=== PATIENT | male | born 1940 | race Caucasian/White ===

== ENCOUNTER 2018-11-07 05:24 | Inpatient (IN) | payer MEDICARE, OTHER ==
[~2018-11-07] VITALS: Ht 172.7 cm; Wt 105.0 kg
[2018-11-07] VITALS (7 sets, daily range): BP systolic 132; BP diastolic 61; PULSE 84–95; RESP 19; Ht 172.7 cm; Wt 105.0 kg
[~2018-11-07 05:24] MED LIST: ADV25050 INH; ALBU8.5H5 IH; ALEN10TA6 PO; BUPR75TA9 PO; ESCI20TA PO; HYDR10SY13 PO; [UNRECOGNIZED DRUG - OTHER]
[2018-11-07] MEDS ORDERED: SODIUM CHLORIDE 0.9% 1L BAG IV* STA (06:06)
[2018-11-07] MEDS ORDERED: IPRATROPIUM (NEB) 0.5 MG/2.5 ML AMP INH STA (06:06)
[2018-11-07] MEDS ORDERED: CEFEPIME 2GM/50 ML (PMX) 50 ML IVPB STA (06:06)
[2018-11-07] MEDS ORDERED: ALBUTEROL 0.5% (NEB) 2.5 MG/0.5 ML AMP INH STA (06:06)
--- NOTE | 2018-11-07 06:25 | ERD ---
ER Documentation Chief Complaint Chief Complaint bib ra from home for sob, ra started cpap, stage 4 ca, full code, brthng tx HPI This is an 78-year-old male who has a history of stage IV lung CA currently undergoing chemotherapy, unknown last dose. The patient presents to the emergency room shortness of breath. The patient usually sleeps with his CPAP and generally has shortness of breath. However symptoms were worse last night. Patient arrived via EMS on CPAP. He was placed in the room and remained on BiPAP. Upon my assessment the patient is a and that he feels much better. He does describe some mild chest discomfort but not pressure-like. No pleuritic pain. He has subjective fever last night with productive cough. Symptoms are described as moderate but improved. Patient is still full code. The family does not have a clear grasp on prognosis. Further conversations about goals of care, prognostic factors would be necessary during inpatient stay. ROS All systems reviewed and are negative except as per history of present illness. Medications Home Meds Reported Medications Albuterol Sulfate* (Albuterol Sulfate* HFA) 8.5 Gm Hfa.aer.ad, 2 PUFF IH Q6, EA 05/07/14 Salmeterol Xinaf/Fluticasone* (Advair*) 250-50 Diskus Inhaler, 1 INH INH BID, INH 05/07/14 [Flunazepam] No Conflict Check, 30 MG 05/07/14 Hydroxyzine Hcl (HYDROXYZINE HCL) 10 Mg/5 Ml Syrup, 25 MG PO 05/07/14 Bupropion Hcl* (Bupropion Hcl*) 75 Mg Tablet, 30 MG PO BID, TAB 05/07/14 Alendronate Sodium* (Alendronate Sodium*) 10 Mg Tablet, 10 MG PO DAILY, TAB 05/07/14 Escitalopram Oxalate* (Lexapro*) 20 Mg Tablet, 20 MG PO DAILY, TAB 05/07/14 Allergies Allergies: Coded Allergies: No Known Allergy (Unverified , 05/07/14) PMhx/Soc History of Surgery: Yes (R EYE CATARACT, LIANE. INGUINAL HERNIA, LUNG SX) Anesthesia Reaction: No Hx Neurological Disorder: No Hx Respiratory Disorders: Yes (COPD) Hx Cardiac Disorders: Yes (HYPERLIPIDEMIA) Hx Psychiatric Problems: No Hx Miscellaneous Medical Probl: Yes (headaches, lung ca stage 4) Hx Alcohol Use: No Hx Substance Use: No Hx Tobacco Use: No Smoking Status: Never smoker FmHx Family History: No diabetes Physical Exam Vitals Vital Signs Date Temp Pulse Resp B/P (MAP) Pulse Ox O2 O2 Flow FiO2 Time Delivery Rate 11/07/18 107 28 142/60 98 Mask 06:23 (87) 11/07/18 102 26 100 21 06:14 11/07/18 110 100 40 05:58 11/07/18 Nasal 05:44 Cannula 11/07/18 99.6 117 26 115/67 100 BIPAP 05:42 (83) 11/07/18 98.7 110 20 149/89 100 05:32 (109) Physical Exam General: Well developed, well nourished, no acute distress, talking in full sentences Head: Normocephalic, atraumatic. Eyes: Pupils equally reactive, EOM intact ENT: Moist mucous membranes Neck: Supple, no lymphadenopathy Respiratory: Coughing, slight increased work of breathing but no distress. Wheezing and rhonchi bilaterally. Cardiovascular: Irregular, no murmurs, rubs, or gallops Abdominal: Soft, non-tender, non-distended, no peritoneal signs : Deferred MSK: No edema, no unilateral swelling, 5/5 strength Neurologic: Alert and oriented, moving all extremities, normal speech, no focal weakness, no cerebellar signs Skin: No rash Psych: Normal mood Result Diagram: 11/07/18 0541 11/07/18 0541 Results 24 hrs Laboratory Tests Test 11/07/18 05:32 11/07/18 05:39 11/07/18 05:41 Blood Gas Specimen Source Blood arterial Arterial Blood Date Drawn 11/07/2018 5:40:53 AM Arterial Blood pH 7.436 (Temp corrected) Arterial Blood pCO2 40.3 mmhg (Temp correct) Arterial Blood pO2 459.4 mmHG (Temp corrected) Arterial Blood HCO3 26.5 mmol/L Arterial Blood Base Excess 2.2 mmol/L Arterial Blood 99.6 mmHG Oxygen Saturation Floyd Test ACCEPTAB Arterial Blood Gas Left Radial Puncture Site Arterial 0.3 % Blood Carboxyhemoglobin Arterial Blood Methemoglobin 0.4 % Blood Gas A-a O2 Differential 213.3 mmHg Oxyhemoglobin Percent 98.9 % Blood Gas Temperature 37.0 C Blood Gas Respiration Rate 16.0 Blood Gas Actual 25 Respiration Rate Blood Gas Modality MASK - BIPAP FiO2 100.0 % Blood Gas Pressure Support 10 Blood Gas IPAP/EPAP Ratio 15/5 Blood Gas Notified Whom MR Blood Gas Notified Time 11/07/2018 5:43:44 AM POC Venous Lactate 2.6 mmol/L White Blood Count 14.8 10^3/ul Red Blood Count 3.40 10^6/ul Hemoglobin 9.8 g/dl Hematocrit 32.4 % Mean Corpuscular Volume 95.3 fl Mean Corpuscular Hemoglobin 28.8 pg Mean Corpuscular 30.2 g/dl Hemoglobin Concent Red Cell Distribution Width 17.7 % Platelet Count 711 10^3/UL Mean Platelet Volume 9.5 fl Immature Granulocytes % 6.600 % Neutrophils % 30.4 % Lymphocytes % 39.8 % Monocytes % 22.6 % Eosinophils % 0.1 % Basophils % 0.5 % Nucleated Red Blood Cells % 4.6 /100WBC Immature Granulocytes # 0.970 10^3/ul Neutrophils # 4.5 10^3/ul Lymphocytes # 5.9 10^3/ul Monocytes # 3.3 10^3/ul Eosinophils # 0.0 10^3/ul Basophils # 0.1 10^3/ul Nucleated Red Blood Cells # 0.7 10^3/ul Prothrombin Time 13.6 Sec Prothrombin Time Ratio 1.1 INR International 1.03 Normalized Ratio Activated 30.5 Sec Partial Thromboplast Time Sodium Level 142 mmol/L Potassium Level 3.6 mmol/L Chloride Level 103 mmol/L Carbon Dioxide Level 29 mmol/L Anion Gap 10 Blood Urea Nitrogen 16 mg/dl Creatinine 1.24 mg/dl Est Glomerular Filtrat mL/min Rate mL/min Glucose Level 146 mg/dl Calcium Level 8.9 mg/dl Total Bilirubin 0.4 mg/dl Direct Bilirubin 0.00 mg/dl Indirect Bilirubin 0.4 mg/dl Aspartate Amino 27 IU/L Transf (AST/SGOT) Alanine 15 IU/L Aminotransferase (ALT/SGPT) Alkaline Phosphatase 81 IU/L Troponin I 0.013 ng/ml B-Type Natriuretic Peptide 1220 PG/ML Total Protein 6.8 g/dl Albumin 3.7 g/dl Globulin 3.10 g/dl Albumin/Globulin Ratio 1.19 Current Medications Medications Dose Sig/Jami Start Time Status Last (Trade) Ordered Route PRN Stop Time Admin Dose Reason Admin Sodium 2,050 ml BOLUS OVER 2 11/07/18 DC 11/07/18 Chloride HOURS STAT 06:06 11/07/18 06:12 (NS) IV* 06:08 Cefepime HCl 50 ml @ ONCE STAT 11/07/18 DC 11/07/18 100 mls/hr IVPB 06:06 11/07/18 06:17 06:35 Vancomycin 250 ml @ ONCE ONCE 11/07/18 11/07/18 HCl 125 mls/hr IVPB 06:30 11/07/18 06:48 08:29 Albuterol 5 mg ONCE STAT 11/07/18 DC 11/07/18 (Proventil INH 06:06 11/07/18 06:14 0.5% (Neb)) 06:08 Ipratropium 1 mg ONCE STAT 11/07/18 DC 11/07/18 [place] INH 06:06 11/07/18 06:14 (Atrovent 06:08 0.02% (Neb)) Procedures/MDM EKG, MONITORS, & DIAGNOSTIC IMAGING: EKG: I reviewed and interpreted a 12-lead EKG. Rhythm: A. fib rate of 106 ST Changes: No contiguous ST segment elevations T waves: No contiguous T wave inversions Impression: No evidence of acute cardiac ischemia Chest x-ray: I reviewed and interpreted a 1 view of the chest Mediastinum: No enlargement Cardiac silhouette: No cardiomegaly Airspace: Interstitial process bilaterally Bones: No evidence of fracture LAB INTERPRETATION: I reviewed the laboratory testing and it shows leukocytosis, lactic acid elevation MEDICAL DECISION MAKING: Patient presents with shortness of breath, subjective fevers, productive cough and a history of stage IV lung CA. Consider progression of disease, superimposed pneumonia. Less concern for CHF though the patient does have atrial fibrillation. No prior echocardiogram on electronic medical record. Patient arrived on CPAP and then placed on BiPAP by the overnight physician. Upon my assessment the patient states that he feels much better and would like to try off of positive pressure ventilation. ABG reassuring. Patient tolerated discontinuation without much difficulty. He is given a breathing treatment and resting comfortably on mild supplemental oxygenation. The patient and family have a very poor grasp of prognosis. The patient is full code. They need to be some goals of care conversations as well as prognostic conversations with patient and family during inpatient stay. ER COURSE: * Patient was treated with an ideal body weight fluid resuscitation given concern for possible mild pulmonary edema. The patient was given broad- spectrum antibiotics. Breathing treatment. * The patient is doing much better and resting comfortably. No indication for intubation, central line or pressors. Lactic acid possibly more consistent to underlying malignancy and work of breathing rather than underlying sepsis. * Patient can be admitted for further management. CONSULTATION: None DISPOSITION PLAN: Telemetry admission for management of shortness of breath, chest pain, pneumonia Accepting care team and consultations: I discussed the current laboratory data, diagnostic imaging and emergency care provided. Admitting team: Dr. David sepsis Documentation: Patient's infectious symptoms have not stabilized and the patient is at risk of rapid decompensation. The patient will be admitted for careful hydration, antibiotic therapy, and infectious source control. SEVERE SEPSIS CRITERIA: Infectious source: Community-acquired pneumonia End organ damage indicated by: Lactate > 2.0 mmol/L SEPSIS MANAGEMENT Time of recognition of sepsis: Upon MD assessment. Time of recognition of severe sepsis: Lactic acid resulted at 5:39 AM Time of recognition of septic shock: No septic shock at this time. 3 HOUR BUNDLE Blood cultures x 2 before broad-spectrum antibiotics: *The patient arrived before my shift started. Unfortunately blood cultures were not ordered at that time. Antibiotics were given prior to blood cultures before it was noted that blood cultures were not ordered on the patient during initial sepsis order set ordering. 30 ml/kg NS bolus pending completion. Railroad body weight used given possible volume overload component Initial lactate 2.6 Repeat lactate pending repeat SEPTIC SHOCK ASSESSMENT: No lactic acid > 4.0 No persistent hypotension (SBP < 90 or 40 mmHg drop, MAP < 65) despite 30 mL/kg IV fluid bolus VOLUME REASSESSMENT FOR SEPTIC SHOCK: The patient does not meet criteria for septic shock in the emergency department at this time PERSISTENT HYPOTENSION TREATMENT: Comfort care no Central line not Required Vasopressor started not required I considered further perfusion assessment with CVP measurement, SCVO2, bedside ultrasound volume assessment, passive leg raise, trial of further fluid bolus. And proceeded with 30 ml/kg fluid bolus of NSS, broad spectrum antibiotics, and admission. CRITICAL CARE Critical care time 35 minutes Emergent fluid management while maintaining close respiratory support. Provision of immediate and broad-spectrum antibiotic therapy. Simultaneous assessment for possible sources in order to direct targeted therapy. Consi deration for invasive and chemical support to prevent cardiopulmonary collapse. Critical care time is independent of procedures performed. Admitting team indication: Insurance directed Departure Diagnosis: Primary Impression: Metastatic primary lung cancer Laterality: unspecified laterality Qualified Codes: C34.90 - Malignant neoplasm of unspecified part of unspecified bronchus or lung Additional Impressions: Shortness of breath Atrial fibrillation Atrial fibrillation type: unspecified Qualified Codes: I48.91 - Uns pecified atrial fibrillation Healthcare-associated pneumonia Severe sepsis Condition: Stable RODERICK CIFUENTES MD Nov 07, 2018 06:25
[2018-11-07] MEDS ORDERED: VANCOMYCIN 1 GM (PMX) 250 ML IVPB ONE (06:30)
[2018-11-07] MEDS ORDERED: ACETAMINOPHEN 325 MG TAB PO PRN ×2 (07:00→07:30)
[2018-11-07] MEDS ORDERED: ONDANSETRON 4 MG INJ IV PRN ×2 (07:00→07:30)
[2018-11-07] MEDS ORDERED: SOD CHLORIDE 0.45% 1,000 ML IV SCH (07:03)
[2018-11-07] MEDS ORDERED: NACL 0.9% 3 ML SYG IV SCH (07:30)
[2018-11-07] MEDS ORDERED: morphine 2 MG INJ IV PRN (07:30)
[2018-11-07] MEDS ORDERED: MAGNESIUM HYDROXIDE 30ML CUP PO PRN (07:30)
[2018-11-07] MEDS ORDERED: VANCOMYCIN IV PER PHARMACY XX SCH (07:30)
[2018-11-07] MEDS ORDERED: LORAZEPAM 2 MG INJ IV PRN (07:30)
[2018-11-07] MEDS ORDERED: ALBUTEROL/IPRATROPIUM (NEB) 3 ML AMP HHN PRN (07:30)
[2018-11-07] MEDS ORDERED: DOCUSATE SODIUM 100 MG CAP PO PRN (07:30)
[2018-11-07] MEDS ORDERED: NITROGLYCERIN (SL) 0.4 MG TAB SL PRN (07:30)
[2018-11-07] MEDS ORDERED: hydrALAzine 20 MG INJ IV PRN (07:30)
[2018-11-07] MEDS: ESCITALOPRAM 10 MG TAB PO SCH (08:50)
[2018-11-07] MEDS: HYDROCODONE/APAP (5/325) TAB PO PRN (08:50)
[2018-11-07] MEDS: HEPARIN 5,000 UNIT/1 ML VIAL SC SCH ×2 (08:50→20:48)
[2018-11-07] MEDS: FLUTICASONE/VILANTEROL 100-25 INH SCH (09:00)
[2018-11-07] MEDS ORDERED: NON-FORMULARY/PATIENT OWN MED (Salmeterol Xinaf/Fluticasone* (Advair*) 1 INH) INH SCH (09:00)
--- NOTE | 2018-11-07 09:56 | HP ---
Date/Time of Note Date/Time of Note DATE: 11/07/18 TIME: 09:47 Assessment/Plan VTE Prophylaxis Pharmacological prophylaxis: heparin Lines/Catheters IV Catheter Type (from Nrs): Saline Lock Assessment/Plan Hospital Course SUBJECTIVE: In bed, on 3 L oxygen via nasal cannula. Having cough, shortness of breath. No fevers currently. OBJECTIVE: Vital signs-see below PHYSICAL EXAM: Constitutional: elderly obese male,not in acute distress. HEENT: Head atraumatic and normocephalic. Eyes: Extraocular muscles intact. Anicteric sclerae. Pupils equal bilaterally, reactive to light. NECK: Supple without lymph node. CHEST: Rhonchi bilaterally. No wheezing. HEART: S1, S2. Regular rate and rhythm. ABDOMEN: Protuberant abdomen. Soft/non tender with no rebound tenderness. Bowel sounds were present. EXTREMITIES:+2 Edema BLE. No cyanosis, clubbing NEUROLOGIC: Alert and oriented x3. No focal deficit. No sensory deficit. PSYCHOSOCIAL: No signs of depression. INTEGUMENTARY: No open wounds. 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 I have instructed patient's family to call oncologist to postpone his next chemo session which is day after tomorrow secondary to pneumonia -Outpatient oncology follow-up after discharge -Pain control LOI/home CPAP use -Nocturnal CPAP -Patient pulmonary follow-up Depression/anxiety syndrome -Resume home medications Chronic pain -PRN opiates Obesity with BMI 37 -Weight reduction advised DVT prophylaxis: Heparin PUD prophylaxis: PPI Rest of the management depend on clinical course. Approximately 60 m spent on this history and physical. Patient was seen in collaboration with Dr. Marinelli. Result Diagram: 11/07/1854011/07/18 0541 Results 24hrs Laboratory Tests Test 11/07/18 05:32 11/07/18 05:39 11/07/18 05:41 11/07/18 08:23 Blood Gas Specimen Blood arterial Source Arterial Blood 11/07/2018 5:40:53 Date Drawn AM Arterial Blood pH 7.436 (Temp corrected) Arterial Blood 40.3 pCO2 (Temp correct) Arterial Blood pO2 459.4 H (Temp corrected) Arterial Blood 26.5 H HCO3 Arterial Blood 2.2 Base Excess Arterial Blood 99.6 Oxygen Saturation Floyd Test ACCEPTAB Arterial Blood Gas Left Radial Puncture Site Arterial 0.3 Blood Carboxyhemog lobin Arterial Blood 0.4 Methemoglobin Blood Gas A-a O2 213.3 H Differential Oxyhemoglobin 98.9 Percent Blood Gas 37.0 Temperature Blood Gas 16.0 Respiration Rate Blood Gas Actual 25 Respiration Rate Blood Gas Modality MASK - BIPAP FiO2 100.0 Blood Gas Pressure 10 Support Blood Gas 15/5 IPAP/EPAP Ratio Blood Gas Notified MR Whom Blood Gas Notified 11/07/2018 5:43:44 Time AM POC Venous Lactate 2.6 *H White Blood Count 14.8 #H Red Blood Count 3.40 #L Hemoglobin 9.8 #L Hematocrit 32.4 #L Mean Corpuscular 95.3 Volume Mean Corpuscular 28.8 L Hemoglobin Mean Corpuscular 30.2 L Hemoglobin Concent Red Cell 17.7 H Distribution Width Platelet Count 711 H Mean Platelet 9.5 # Volume Immature 6.600 H Granulocytes % Neutrophils % 30.4 L Segmented 14 L Neutrophils % (Manual) Band Neutrophils % 15 H (Manual) Lymphocytes % 39.8 Lymphocytes % 31 (Manual) Reactive 10 H Lymphocytes % (Manual) Monocytes % 22.6 H Monocytes % 17 H (Manual) Eosinophils % 0.1 Eosinophils % 3 (Manual) Basophils % 0.5 Basophils % 2 (Manual) Metamyelocytes % 2 H (manual) Myelocytes % 4 H (Manual) Promyelocytes % 2 H (Manual) Nucleated Red 5 H Blood Cells % Immature 0.970 H Granulocytes # Neutrophils # 4.5 Neutrophils # 2.4 (Manual) Band Neutrophils # 2.2 H Lymphocytes 4.5 H (Manual) Lymphocytes # 5.9 H Reactive 1.4 H Lymphocytes # Monocytes # 3.3 H Monocytes # 2.5 H (Manual) Eosinophils # 0.0 Basophils # 0.1 Basophils # 0.2 H (Manual) Metamyelocytes # 0.2 H Myelocytes # 0.5 H Promyelocytes # 0.2 H Nucleated Red 0.7 H Blood Cells # Platelet Estimate INCREASED Polychromasia 3+ Poikilocytosis 1+ Anisocytosis 1+ Tear Drop Cells 1+ Ovalocytes 1+ Prothrombin Time 13.6 14.4 Prothrombin Time 1.1 1.1 Ratio INR International 1.03 1.11 Normalized Ratio Activated 30.[address] Time Sodium Level 142 Potassium Level 3.6 Chloride Level 103 Carbon Dioxide 29 Level Anion Gap 10 Blood Urea 16 Nitrogen Creatinine 1.24 Est Glomerular Filtrat Rate mL/min Glucose Level 146 Calcium Level 8.9 Total Bilirubin 0.4 Direct Bilirubin 0.00 Indirect Bilirubin 0.4 Aspartate Amino 27 Transf (AST/SGOT) Alanine 15 Aminotransferase ( ALT/SGPT) Alkaline 81 Phosphatase Troponin I 0.013 B-Type Natriuretic 1220 H Peptide Total Protein 6.8 Albumin 3.7 Globulin 3.10 Albumin/Globulin 1.19 Ratio Lactic Acid Level 3.5 *H Free Thyroxine 1.16 HPI/ROS Admit Date/Time Admit Date/Time Hx of Present Illness This is a 78-year-old [place] male with history of stage IV lung cancer diagnosed in 2013 who underwent left sided lung resection surgery followed by radiation, progression of cancer mets to spine currently receiving on chemotherapy with last session last week, LOI/home CPAP use, depression /anxiety syndrome, pain secondary to cancer, brought into the emergency room with worsening shortness of breath, cough, fevers since yesterday. Patient has been using his inhalers and CPAP machine which was not enough at this time. His next chemotherapy is supposed to be day after tomorrow. Patient denied nausea, vomiting, abdominal pain, loss of consciousness, dizziness, speech difficulties, vision changes, diarrhea, constipation, numbness, tingling or other constitutional symptoms. In the emergency room, patient was noted with a white count 14,800, hemoglobin 9.8, hematocrit 32.4, platelet 711, lactic acid 2.6 which went up to 3.5, and B12 20. Chest x-ray showed chronic interstitial prominence bilaterally along with atelectasis. Vital signs show temperature 99.6, pulse rate 117 and patient also required BiPAP in the emergency room. Tolerated EKG showed atrial fibrillation with heart rate ranging in 110. And was given Zosyn and vancomycin in the emergency room. ROS A 12 point review of system was assessed and is negative other than what is mentioned in the HPI. PMH/Family/Social Past Medical History See HPI Medications Current Medications Ondansetron HCl (Zofran Inj) 4 mg ER BRIDGE PRN IV NAUSEA/VOMITING; Start 11/07/18 at 07:00; Stop 11/08/18 at 06:59 Acetaminophen (Tylenol Tab) 650 mg ER BRIDGE PRN PO .MILD PAIN 1-3 OR TEMP; Start 11/07/18 at 07:00; Stop 11/08/18 at 06:59 IV Flush (NS 3 ml) 3 ml PER PROTOCOL IV ; Start 11/07/18 at 07:30 Ondansetron HCl (Zofran Inj) 4 mg Q6H PRN IV NAUSEA/VOMITING; Start 11/07/18 at 07:30 Acetaminophen (Tylenol Tab) 650 mg Q6H PRN PO .PAIN 1-3 OR TEMP; Start 11/07/18 at 07:30 Acetaminophen/ Hydrocodone Bitart ([place] (5/325)) 1 tab Q6H PRN PO .MOD PAIN 4- 6; Start 11/07/18 at 07:30 Morphine Sulfate (morphine) 2 mg Q4H PRN IV .SEVERE PAIN 7-10; Start 11/07/18 at 07:30 Docusate Sodium (Colace) 100 mg Q12H PRN PO .CONSTIPATION; Start 11/07/18 at 07:30 Magnesium Hydroxide (Milk Of Mag) 30 ml DAILY PRN PO .CONSTIPATION; Start 11/07/18 at 07:30 Pantoprazole (Protonix Tab) 40 mg DAILY@06 PO ; Start 11/08/18 at 06:00 Heparin Sodium (Porcine) (Heparin (5000 Units/1ml)) 5,000 unit Q12 SC ; Start 11/07/18 at 09:00 Sodium Chloride 1,000 ml @ 75 mls/hr [id number] IV ; Start 11/07/18 at 07:03 Lorazepam (Ativan) 0.5 mg Q6H PRN IV ANXIETY; Start 11/07/18 at 07:30 Albuterol/ Ipratropium (Duoneb) 3 ml Q4H RESP THERAPY PRN HHN SHORTNESS OF BREATH; Start 11/07/18 at 07:30 Piperacillin Sod/ Tazobactam Sod 100 ml @ 200 mls/hr Q6 IVPB ; Start 11/07/18 at 12:00 Vancomycin HCl (Vanco Iv Per Pharmacy) VANCOMYCIN PER PHARMACY NOTE XX ; Start 11/07/18 at 07:30 Hydralazine HCl (Apresoline) 10 mg Q6H PRN IV for sys bp > 180; Start 11/07/18 at 07:30 Nitroglycerin (Nitroglycerin (Sl Tab) 0.4 Mg) 1 tab Q5M PRN SL ANGINA; Start 11/07/18 at 07:30 Albuterol (Ventolin Hfa) 2 puff Q6 INH ; Start 11/07/18 at 12:00 Alendronate Sodium (Fosamax) 10 mg AC BREAKFAST PO ; Start 11/08/18 at 07:00 Escitalopram Oxalate (Lexapro) 20 mg DAILY PO ; Start 11/07/18 at 09:00 Vancomycin HCl 1.25 gm/Sodium Chloride 250 ml @ 83.333 mls/ hr Q24H IVPB ; Start 11/07/18 at 13:00 Fluticasone/ Vilanterol (Breo Ellipta 100-25 Mcg Inh) 1 inh DAILY INH ; Start 11/07/18 at 09:00 Coded Allergies: No Known Allergy (Unverified , 11/07/18) Past Surgical History See HPI Social History Former heavy smoker. Smoking Status: Never smoker Exam/Review of Systems Vital Signs Vitals Vital Signs Date Temp Pulse Resp B/P (MAP) Pulse Ox O2 O2 Flow FiO2 Time Delivery Rate 11/07/18 100 24 120/62 98 Nasal 4.0 08:18 (81) Cannula 11/07/18 21 06:14 11/07/18 99.6 05:42 Intake and Output 11/06/18 11/06/18 11/07/18 1515:00 23:00 07:00 IntakeIntake Total 50 ml BalanceBalance 50 ml EFRA ROJAS NP Nov 07, 2018 09:56
[2018-11-07] MEDS: ASPIRIN 81 MG TAB PO SCH (10:23)
[2018-11-07] MEDS: PIPER-TAZO 3.375 GM IV (PMX) 100 ML IVPB SCH ×3 (11:31→22:45)
[2018-11-07] MEDS ORDERED: ALBUTEROL 18 GM INHALER INH SCH (12:00)
[2018-11-07] MEDS: VANCOMYCIN HCL 1.25 GM in SOD CHLORIDE 0.9% 250 ML IVPB SCH (12:29)
--- NOTE | 2018-11-07 12:29 | CONS ---
Assessment/Plan Assessment/Plan Hospital Course (Demo Recall) 1) possible pneumonia symptoms were rather acute and he already feels better with breathing treatment will check procalcitonin now and in a.m. continue with vanco/zosyn at present but if procalcitonin is neg will change to just atypical pneumonia coverage CXR is not convincing for confirmation of pneumonia 2) Lung CA with resection and XRT pt is at higher risk for clots and he has LE edema will order robbi dopplers to LE but since his breathing is already better PE is less likely 3) leonardo LE edema albumin is almost normal will check LE robbi dopplers but doubt he has a DVT but need to check 4) a-fib 5) sleep apnea Consultation Date/Type/Reason Admit Date/Time Date of Consultation: Nov 07, 2018 Type of Consult ID Date/Time of Note DATE: 11/07/18 TIME: 12:19 Hx of Present Illness pt has known lung CA with partial L side lung resection and XRT pt uses CPAP but last night he was more SOB he has a cough of yellow phlegm for one day last night he had a fever but no chills or NS no N, V he received chemotherapy last week but no vomiting at that time no dysuria, muscle aches, joint pains (except back which is not new) and no rashes Past Medical History Lung CA, martha mets, chronic pain due to CA, a-fib, sleep apnea Home Meds Reported Medications Albuterol Sulfate* (Albuterol Sulfate* HFA) 8.5 Gm Hfa.aer.ad, 2 PUFF IH Q6, EA 05/07/14 Salmeterol Xinaf/Fluticasone* (Advair*) 250-50 Diskus Inhaler, 1 INH INH BID, INH 05/07/14 [Flunazepam] No Conflict Check, 30 MG 05/07/14 Hydroxyzine Hcl (HYDROXYZINE HCL) 10 Mg/5 Ml Syrup, 25 MG PO 05/07/14 Bupropion Hcl* (Bupropion Hcl*) 75 Mg Tablet, 30 MG PO BID, TAB 05/07/14 Alendronate Sodium* (Alendronate Sodium*) 10 Mg Tablet, 10 MG PO DAILY, TAB 05/07/14 Escitalopram Oxalate* (Lexapro*) 20 Mg Tablet, 20 MG PO DAILY, TAB 05/07/14 Medications Current Medications Ondansetron HCl (Zofran Inj) 4 mg ER BRIDGE PRN IV NAUSEA/VOMITING; Start 11/07/18 at 07:00; Stop 11/08/18 at 06:59 Acetaminophen (Tylenol Tab) 650 mg ER BRIDGE PRN PO .MILD PAIN 1-3 OR TEMP; Start 11/07/18 at 07:00; Stop 11/08/18 at 06:59 IV Flush (NS 3 ml) 3 ml PER PROTOCOL IV ; Start 11/07/18 at 07:30 Ondansetron HCl (Zofran Inj) 4 mg Q6H PRN IV NAUSEA/VOMITING; Start 11/07/18 at 07:30 Acetaminophen (Tylenol Tab) 650 mg Q6H PRN PO .PAIN 1-3 OR TEMP; Start 11/07/18 at 07:30 Acetaminophen/ Hydrocodone Bitart ([place] (5/325)) 1 tab Q6H PRN PO .MOD PAIN 4- 6 Last administered on 11/07/18at 08:50; Admin Dose 1 TAB; Start 11/07/18 at 07:30 Morphine Sulfate (morphine) 2 mg Q4H PRN IV .SEVERE PAIN 7-10; Start 11/07/18 at 07:30 Docusate Sodium (Colace) 100 mg Q12H PRN PO .CONSTIPATION; Start 11/07/18 at 07:30 Magnesium Hydroxide (Milk Of Mag) 30 ml DAILY PRN PO .CONSTIPATION; Start 11/07/18 at 07:30 Pantoprazole (Protonix Tab) 40 mg DAILY@06 PO ; Start 11/08/18 at 06:00 Heparin Sodium (Porcine) (Heparin (5000 Units/1ml)) 5,000 unit Q12 SC Last administered on 11/07/18at 08:50; Admin Dose 5,000 UNIT; Start 11/07/18 at 09:00 Lorazepam (Ativan) 0.5 mg Q6H PRN IV ANXIETY; Start 11/07/18 at 07:30 Piperacillin Sod/ Tazobactam Sod 100 ml @ 200 mls/hr Q6 IVPB Last administered on 11/07/18at 11:31; Admin Dose 200 MLS/HR; Start 11/07/18 at 12:00 Vancomycin HCl (Vanco Iv Per Pharmacy) VANCOMYCIN PER PHARMACY NOTE XX ; Start 11/07/18 at 07:30 Nitroglycerin (Nitroglycerin (Sl Tab) 0.4 Mg) 1 tab Q5M PRN SL ANGINA; Start 11/07/18 at 07:30 Alendronate Sodium (Fosamax) 10 mg AC BREAKFAST PO ; Start 11/08/18 at 07:00 Escitalopram Oxalate (Lexapro) 20 mg DAILY PO Last administered on 11/07/18at 08:50; Admin Dose 20 MG; Start 11/07/18 at 09:00 Vancomycin HCl 1.25 gm/Sodium Chloride 250 ml @ 83.333 mls/ hr Q24H IVPB ; Start 11/07/18 at 13:00 Fluticasone/ Vilanterol (Breo Ellipta 100-25 Mcg Inh) 1 inh DAILY INH ; Start 11/07/18 at 09:00 Aspirin (Aspirin) 81 mg DAILY PO Last administered on 11/07/18at 10:23; Admin Dose 81 MG; Start 11/07/18 at 10:00 Levalbuterol (Xopenex Neb) 1.25 mg Q4H RESP THERAPY HHN ; Start 11/07/18 at 13:00 Ipratropium [place] (Atrovent 0.02% (Neb)) 0.5 mg Q4H RESP THERAPY HHN ; Start 11/07/18 at 13:00 Bupropion HCl (Wellbutrin) 37.5 mg BID PO ; Start 11/07/18 at 21:00 Alprazolam (Xanax) 0.5 mg Q12H PRN PO ANXIETY; Start 11/07/18 at 10:00 Allergies: Coded Allergies: No Known Allergy (Unverified , 11/07/18) Past Surgical History partial L lung resection Social History Smoking Status: Never smoker Exam/Review of Systems Exam Vitals Vital Signs Date Temp Pulse Resp B/P (MAP) Pulse Ox O2 O2 Flow FiO2 Time Delivery Rate 11/07/18 85 20 114/61 100 Nasal 3.0 12:00 (78) Cannula 11/07/18 21 06:14 11/07/18 99.6 05:42 Intake and Output 11/06/18 11/06/18 11/07/18 1515:00 23:00 07:00 IntakeIntake Total 50 ml BalanceBalance 50 ml Constitutional: alert, oriented Eyes: nl sclera ENMT: mucosa pink and moist Neck: supple Respiratory: other (wheezing on L side with some rhonchi) Cardiovascular: regular rate and rhythm Gastrointestinal: soft, non-tender Extremities: other (1+ pitting edema but no calf tenderness) Neurological: other (moves all extremities) Results Result Diagram: 11/07/18 0541 11/07/18 0541 Results 24hrs Laboratory Tests Test 11/07/18 05:32 11/07/18 05:39 11/07/18 05:41 11/07/18 08:23 Blood Gas Specimen Blood arterial Source Arterial Blood 11/07/2018 5:40:53 Date Drawn AM Arterial Blood pH 7.436 (Temp corrected) Arterial Blood 40.3 pCO2 (Temp correct) Arterial Blood pO2 459.4 H (Temp corrected) Arterial Blood 26.5 H HCO3 Arterial Blood 2.2 Base Excess Arterial Blood 99.6 Oxygen Saturation Floyd Test ACCEPTAB Arterial Blood Gas Left Radial Puncture Site Arterial 0.3 Blood Carboxyhemog lobin Arterial Blood 0.4 Methemoglobin Blood Gas A-a O2 213.3 H Differential Oxyhemoglobin 98.9 Percent Blood Gas 37.0 Temperature Blood Gas 16.0 Respiration Rate Blood Gas Actual 25 Respiration Rate Blood Gas Modality MASK - BIPAP FiO2 100.0 Blood Gas Pressure 10 Support Blood Gas 15/5 IPAP/EPAP Ratio Blood Gas Notified MR Whom Blood Gas Notified 11/07/2018 5:43:44 Time AM POC Venous Lactate 2.6 *H White Blood Count 14.8 #H Red Blood Count 3.40 #L Hemoglobin 9.8 #L Hematocrit 32.4 #L Mean Corpuscular 95.3 Volume Mean Corpuscular 28.8 L Hemoglobin Mean Corpuscular 30.2 L Hemoglobin Concent Red Cell 17.7 H Distribution Width Platelet Count 711 H Mean Platelet 9.5 # Volume Immature 6.600 H Granulocytes % Neutrophils % 30.4 L Segmented 14 L Neutrophils % (Manual) Band Neutrophils % 15 H (Manual) Lymphocytes % 39.8 Lymphocytes % 31 (Manual) Reactive 10 H Lymphocytes % (Manual) Monocytes % 22.6 H Monocytes % 17 H (Manual) Eosinophils % 0.1 Eosinophils % 3 (Manual) Basophils % 0.5 Basophils % 2 (Manual) Metamyelocytes % 2 H (manual) Myelocytes % 4 H (Manual) Promyelocytes % 2 H (Manual) Nucleated Red 5 H Blood Cells % Immature 0.970 H Granulocytes # Neutrophils # 4.5 Neutrophils # 2.4 (Manual) Band Neutrophils # 2.2 H Lymphocytes 4.5 H (Manual) Lymphocytes # 5.9 H Reactive 1.4 H Lymphocytes # Monocytes # 3.3 H Monocytes # 2.5 H (Manual) Eosinophils # 0.0 Basophils # 0.1 Basophils # 0.2 H (Manual) Metamyelocytes # 0.2 H Myelocytes # 0.5 H Promyelocytes # 0.2 H Nucleated Red 0.7 H Blood Cells # Platelet Estimate INCREASED Polychromasia 3+ Poikilocytosis 1+ Anisocytosis 1+ Tear Drop Cells 1+ Ovalocytes 1+ Prothrombin Time 13.6 14.4 Prothrombin Time 1.1 1.1 Ratio INR International 1.03 1.11 Normalized Ratio Activated 30.[address] Time Sodium Level 142 Potassium Level 3.6 Chloride Level 103 Carbon Dioxide 29 Level Anion Gap 10 Blood Urea 16 Nitrogen Creatinine 1.24 Est Glomerular Filtrat Rate mL/min Glucose Level 146 Calcium Level 8.9 Total Bilirubin 0.4 Direct Bilirubin 0.00 Indirect Bilirubin 0.4 Aspartate Amino 27 Transf (AST/SGOT) Alanine 15 Aminotransferase ( ALT/SGPT) Alkaline 81 Phosphatase Troponin I 0.013 B-Type Natriuretic 1220 H Peptide Total Protein 6.8 Albumin 3.7 Globulin 3.10 Albumin/Globulin 1.19 Ratio Lactic Acid Level 3.5 *H Magnesium Level 1.6 L Free Thyroxine 1.16 Test 11/07/18 10:30 11/07/18 10:34 Lactic Acid Level 2.8 *H Creatine Kinase 28 Creatine Kinase 1.5 Index Creatinine Kinase 0.43 MB (Mass) Troponin I 0.018 POC Venous Lactate 2.3 *H Medications Medication Current Medications Ondansetron HCl (Zofran Inj) 4 mg ER BRIDGE PRN IV NAUSEA/VOMITING; Start 11/07/18 at 07:00; Stop 11/08/18 at 06:59 Acetaminophen (Tylenol Tab) 650 mg ER BRIDGE PRN PO .MILD PAIN 1-3 OR TEMP; Start 11/07/18 at 07:00; Stop 11/08/18 at 06:59 IV Flush (NS 3 ml) 3 ml PER PROTOCOL IV ; Start 11/07/18 at 07:30 Ondansetron HCl (Zofran Inj) 4 mg Q6H PRN IV NAUSEA/VOMITING; Start 11/07/18 at 07:30 Acetaminophen (Tylenol Tab) 650 mg Q6H PRN PO .PAIN 1-3 OR TEMP; Start 11/07/18 at 07:30 Acetaminophen/ Hydrocodone Bitart ([place] (5/325)) 1 tab Q6H PRN PO .MOD PAIN 4- 6 Last administered on 11/07/18at 08:50; Admin Dose 1 TAB; Start 11/07/18 at 07:30 Morphine Sulfate (morphine) 2 mg Q4H PRN IV .SEVERE PAIN 7-10; Start 11/07/18 at 07:30 Docusate Sodium (Colace) 100 mg Q12H PRN PO .CONSTIPATION; Start 11/07/18 at 07:30 Magnesium Hydroxide (Milk Of Mag) 30 ml DAILY PRN PO .CONSTIPATION; Start 11/07/18 at 07:30 Pantoprazole (Protonix Tab) 40 mg DAILY@06 PO ; Start 11/08/18 at 06:00 Heparin Sodium (Porcine) (Heparin (5000 Units/1ml)) 5,000 unit Q12 SC Last administered on 11/07/18at 08:50; Admin Dose 5,000 UNIT; Start 11/07/18 at 09:00 Lorazepam (Ativan) 0.5 mg Q6H PRN IV ANXIETY; Start 11/07/18 at 07:30 Piperacillin Sod/ Tazobactam Sod 100 ml @ 200 mls/hr Q6 IVPB Last administered on 11/07/18at 11:31; Admin Dose 200 MLS/HR; Start 11/07/18 at 12:00 Vancomycin HCl (Vanco Iv Per Pharmacy) VANCOMYCIN PER PHARMACY NOTE XX ; Start 11/07/18 at 07:30 Nitroglycerin (Nitroglycerin (Sl Tab) 0.4 Mg) 1 tab Q5M PRN SL ANGINA; Start 11/07/18 at 07:30 Alendronate Sodium (Fosamax) 10 mg AC BREAKFAST PO ; Start 11/08/18 at 07:00 Escitalopram Oxalate (Lexapro) 20 mg DAILY PO Last administered on 11/07/18at 08:50; Admin Dose 20 MG; Start 11/07/18 at 09:00 Vancomycin HCl 1.25 gm/Sodium Chloride 250 ml @ 83.333 mls/ hr Q24H IVPB ; Start 11/07/18 at 13:00 Fluticasone/ Vilanterol (Breo Ellipta 100-25 Mcg Inh) 1 inh DAILY INH ; Start 11/07/18 at 09:00 Aspirin (Aspirin) 81 mg DAILY PO Last administered on 11/07/18at 10:23; Admin Dose 81 MG; Start 11/07/18 at 10:00 Levalbuterol (Xopenex Neb) 1.25 mg Q4H RESP THERAPY HHN ; Start 11/07/18 at 13:00 Ipratropium [place] (Atrovent 0.02% (Neb)) 0.5 mg Q4H RESP THERAPY HHN ; Start 11/07/18 at 13:00 Bupropion HCl (Wellbutrin) 37.5 mg BID PO ; Start 11/07/18 at 21:00 Alprazolam (Xanax) 0.5 mg Q12H PRN PO ANXIETY; Start 11/07/18 at 10:00 CARINA STODDARD MD Nov 07, 2018 12:29
[2018-11-07] MEDS: LEVALBUTEROL (NEB) 1.25 MG/0.5 ML AMP HHN SCH ×3 (13:10→20:17)
[2018-11-07] MEDS: IPRATROPIUM (NEB) 0.5 MG/2.5 ML AMP HHN SCH ×3 (13:10→20:17)
--- NOTE | 2018-11-07 16:41 | RADRPT ---
Echocardiogram Report Patient Name: PATRICIA JHAPatient ID: [id number] : 1940 (78y 8m)Study Date: 11/07/2018 10:43:26 AM Gender: MAccession #: [id number] Tech: My Espinoza RDCS Location: [facility] Ref.Physician: EFRA ROJAS Height(Cm): BSA: Weight(Kg): Quality: AdequateOrder Physician: EFRA ROJAS Account #: Procedures: Echocardiographic Report: Transthoracic echocardiogram with complete 2D, M-Mode, and doppler examination. Indications: Atrial Fibrillation. Measurements: 2D/M Mode Doppler Measurement Value Normal Range Measurement Value Normal Range LVIDd 2D 4.5 [ 4.2 - 5.8 ] cm AV Peak [place] 2.0 [ 100.0 - 170.0 ] cm/sec LVIDs 2D 2.1 [ 2.5 - 4.0 ] cm AV Peak PG 16.0 [ 2.0 - 9.0 ] mmHg LVPWd 2D 1.4 [ 0.6 - 1.0 ] cm LVOT Peak [place] 1.2 [ 70.0 - 110.0 ] cm/sec IVSd 2D 1.4 [ 0.6 - 1.0 ] cm LVOT Peak PG 5.0 [ 2.0 - 6.0 ] mmHg AoR Diam 2D 3.3 [ 2.6 - 3.4 ] cm MV E Peak [place] 0.9 [ 60.0 - 130.0 ] cm/sec EDV 2D 90.5 [ 62.0 - 150.0 ] ml MV A Peak [place] 1.2 [ 100.0 - 120.0 ] cm/sec ESV 2D 14.4 [ 21.0 - 61.0 ] ml MV E/A 0.7 [ 0.8 - 1.5 ] ratio EF 2D 84.1 [ 52.0 - 72.0 ] percent MV Decel Time 215 [ 104 - 258 ] msec LA Dimen 2D 3.8 [ 3.0 - 4.0 ] cm Lat E` Calderon 0.1 [ 10.0 - 15.0 ] cm/sec Lateral E/E` 15.1 [ 1.0 - 2.0 ] ratio MV E/A 0.7 [ 0.8 - 1.5 ] ratio TR Peak Calderon 1.9 [ 100.0 - 280.0 ] cm/sec TR Peak PG 14.0 mmHg RVSP 29.0 [ 10.0 - 36.0 ] mmHg RA Pressure 15.0 mmHg Findings: Left Ventricle: Normal left ventricular systolic function. Normal left ventricular cavity size. Moderate concentric left ventricular hypertrophy. Ejection fraction is visually estimated at 65 %. Tissue Doppler/Mitral Doppler indices are consistent with impaired relaxation (Stage I diastolic dysfunction). Right Ventricle: Normal right ventricular size. Normal right ventricular systolic function. Left Atrium: The left atrium is normal in size. Right Atrium: The right atrium is normal in size. Mitral Valve: Normal appearance and function of the mitral valve with trace physiologic regurgitation. Aortic Valve: Aortic sclerosis without significant stenosis. Trace aortic valve regurgitation. Tricuspid Valve: Normal appearance of the tricuspid valve. Unable to obtain RVSP due to minimal presence of tricuspid regurgitation. There is trace tricuspid regurgitation. Pulmonic Valve: Pulmonic valve not well visualized. Pericardium: Normal pericardium with no significant pericardial effusion. There is an anterior echo free space consistent with epicardial fat pad. Aorta: Normal aortic root. IVC: Dilated IVC with respiratory collapse consistent with elevated right atrial pressure. Conclusions: Technically difficult study. Normal left ventricular systolic function. Normal left ventricular cavity size. Moderate concentric left ventricular hypertrophy. Ejection fraction is visually estimated at 65 %. Tissue Doppler/Mitral Doppler indices are consistent with impaired relaxation (Stage I diastolic dysfunction). Normal right ventricular size. Normal right ventricular systolic function. The left atrium is normal in size. Normal appearance and function of the mitral valve with trace physiologic regurgitation. Aortic sclerosis without significant stenosis. Trace aortic valve regurgitation. Normal appearance of the tricuspid valve. Unable to obtain RVSP due to minimal presence of tricuspid regurgitation. There is trace tricuspid regurgitation. Normal pericardium with no significant pericardial effusion. There is an anterior echo free space consistent with epicardial fat pad. Dilated IVC with respiratory collapse consistent with elevated right atrial pressure. Normal aortic root. No Vegetation, masses, or thrombi seen. Electronically Signed By: Fadi Geronimo 2018-11-07 16:41:04 PDT
--- NOTE | 2018-11-07 16:55 | CONS ---
DATE OF ADMISSION: 11/07/2018 DATE OF CONSULTATION: 11/07/2018 REASON FOR CONSULT: Shortness of breath. Thank you, Dr. Cole, for this consultation. HISTORY OF PRESENT ILLNESS: This is an 78-year-old gentleman with a history of lung cancer diagnosed in 2013. He underwent resection in his left lung with subsequent recurrence which required radiatio n and now chemotherapy. He has a history of obstructive sleep apnea with a home CPAP device. He pre sents here with several-day history of increasing cough, congestion and subjective fever. No hemopty sis, hematemesis, nor weight loss. Upon further questioning, he has limited mobility at home. He pr esented with leukocytosis, lactic acidosis initially requiring noninvasive positive-pressure ventilat ion. Since that time, he has improved with addition of diuretics and rate control. PAST MEDICAL HISTORY: As above. MEDICATIONS: Per chart. ALLERGIES: NONE. SOCIAL HISTORY: He is an ex-smoker. No alcohol. No history of drug use. FAMILY HISTORY: Noncontributory. REVIEW OF SYSTEMS: A 12-point review of systems is negative other than that mentioned above. PHYSICAL EXAMINATION: GENERAL: Well-nourished, well-developed gentleman, comfortable at rest, talking in full and complete sentences. VITAL SIGNS: Currently afebrile, pulse is 86, blood pressure 116/52, O2 sat 98% on 3 L. NECK: Supple. No JVD or lymphadenopathy. CARDIAC: S1, S2. No added sounds or murmurs. CHEST: Diminished air entry bilaterally. ABDOMEN: Soft, nontender. No guarding or rebound. EXTREMITIES: No cyanosis, clubbing, edema. NEUROLOGIC: Grossly intact. No focal deficits. LABORATORY STUDIES: White count 14.8, hemoglobin 9.8, platelets of 711. Lactic acid now 2.3, down f rom 2.8. BUN 16, creatinine 1.24. Arterial blood gas: pH 7.43, pCO2 of 40, pO2 of 459. DIAGNOSTIC STUDIES: Chest x-ray showed mild interstitial lung disease, volume loss and parenchymal c hanges in the left lung. Lower extremity Dopplers were negative for deep vein thrombosis. IMPRESSION: 1. Probable chronic obstructive pulmonary disease exacerbation. 2. Community-acquired pneumonia. 3. History of stage IV lung cancer status post resection and chemotherapy. PLAN: The patient will require: 1. Antibiotics. 2. Agree with checking procalcitonin level. 3. Bronchodilators. 4. Diuresis. 5. Treatment for sleep apnea. 6. Outpatient PFTs and CT chest. Dictated By: DARYL HONG MD SV/ABRIL Conf#: [id number] DID#: [id number] CC: GRANT MONTIEL; PRICE COLE MD;*EndCC*
[2018-11-07] MEDS ORDERED: SOD CHLORIDE 0.9% 500 ML IV ONE (17:00)
--- NOTE | 2018-11-07 20:19 | CONS ---
Assessment/Plan Assessment/Plan Hospital Course (Demo Recall) Paroxysmal atrial fibrillation: new onset. CHADSVASC is 2 and he would qualify for chronic anticoagulation. Echo with preserved EF. Now back in sinus PNA/sepsis Stage 4 lung cancer COPD LOI -if back in afib and needs rate control, could start diltiazem, otherwise not necessary at this time -will discuss with family regarding anticoagulation -antibiotics/nebs Consultation Date/Type/Reason Admit Date/Time Date of Consultation: Nov 07, 2018 Type of Consult Cardiology Reason for Consultation afib Requesting Provider: EFRA ROJAS NP Date/Time of Note DATE: 11/07/18 TIME: 20:12 Hx of Present Illness 78 yo M with a h/o COPD, stage 4 lung cancer, sleep apnea, who presented with dyspnea. He was found to have likely PNA and sepsis with elevated lactate and procalcitonin. He was also noted to have afib with RVR in the 110s on admission which has since converted to sinus. He is now comfortable on room air and he denies dyspnea. He notes increased sputum for 5 days. He denies a h/o afib or cardiac disease. per HPI Past Medical History per hPI Home Meds Reported Medications Albuterol Sulfate* (Albuterol Sulfate* HFA) 8.5 Gm Hfa.aer.ad, 2 PUFF IH Q6, EA 05/07/14 Salmeterol Xinaf/Fluticasone* (Advair*) 250-50 Diskus Inhaler, 1 INH INH BID, INH 05/07/14 [Flunazepam] No Conflict Check, 30 MG 05/07/14 Hydroxyzine Hcl (HYDROXYZINE HCL) 10 Mg/5 Ml Syrup, 25 MG PO 05/07/14 Bupropion Hcl* (Bupropion Hcl*) 75 Mg Tablet, 30 MG PO BID, TAB 05/07/14 Alendronate Sodium* (Alendronate Sodium*) 10 Mg Tablet, 10 MG PO DAILY, TAB 05/07/14 Escitalopram Oxalate* (Lexapro*) 20 Mg Tablet, 20 MG PO DAILY, TAB 05/07/14 Medications Current Medications Ondansetron HCl (Zofran Inj) 4 mg ER BRIDGE PRN IV NAUSEA/VOMITING; Start 11/07/18 at 07:00; Stop 11/08/18 at 06:59 Acetaminophen (Tylenol Tab) 650 mg ER BRIDGE PRN PO .MILD PAIN 1-3 OR TEMP; Start 11/07/18 at 07:00; Stop 11/08/18 at 06:59 IV Flush (NS 3 ml) 3 ml PER PROTOCOL IV ; Start 11/07/18 at 07:30 Ondansetron HCl (Zofran Inj) 4 mg Q6H PRN IV NAUSEA/VOMITING; Start 11/07/18 at 07:30 Acetaminophen (Tylenol Tab) 650 mg Q6H PRN PO .PAIN 1-3 OR TEMP; Start 11/07/18 at 07:30 Acetaminophen/ Hydrocodone Bitart ([place] (5/325)) 1 tab Q6H PRN PO .MOD PAIN 4- 6 Last administered on 11/07/18at 08:50; Admin Dose 1 TAB; Start 11/07/18 at 07:30 Morphine Sulfate (morphine) 2 mg Q4H PRN IV .SEVERE PAIN 7-10; Start 11/07/18 at 07:30 Docusate Sodium (Colace) 100 mg Q12H PRN PO .CONSTIPATION; Start 11/07/18 at 07:30 Magnesium Hydroxide (Milk Of Mag) 30 ml DAILY PRN PO .CONSTIPATION; Start 11/07/18 at 07:30 Pantoprazole (Protonix Tab) 40 mg DAILY@06 PO ; Start 11/08/18 at 06:00 Heparin Sodium (Porcine) (Heparin (5000 Units/1ml)) 5,000 unit Q12 SC Last administered on 11/07/18at 08:50; Admin Dose 5,000 UNIT; Start 11/07/18 at 09:00 Lorazepam (Ativan) 0.5 mg Q6H PRN IV ANXIETY; Start 11/07/18 at 07:30 Piperacillin Sod/ Tazobactam Sod 100 ml @ 200 mls/hr Q6 IVPB Last administered on 11/07/18at 18:31; Admin Dose 200 MLS/HR; Start 11/07/18 at 12:00 Vancomycin HCl (Vanco Iv Per Pharmacy) VANCOMYCIN PER PHARMACY NOTE XX ; Start 11/07/18 at 07:30 Nitroglycerin (Nitroglycerin (Sl Tab) 0.4 Mg) 1 tab Q5M PRN SL ANGINA; Start 11/07/18 at 07:30 Alendronate Sodium (Fosamax) 10 mg AC BREAKFAST PO ; Start 11/08/18 at 07:00 Escitalopram Oxalate (Lexapro) 20 mg DAILY PO Last administered on 11/07/18at 08:50; Admin Dose 20 MG; Start 11/07/18 at 09:00 Vancomycin HCl 1.25 gm/Sodium Chloride 250 ml @ 83.333 mls/ hr Q24H IVPB Last administered on 11/07/18at 12:29; Admin Dose 83.333 MLS/HR; Start 11/07/18 at 13:00 Fluticasone/ Vilanterol (Breo Ellipta 100-25 Mcg Inh) 1 inh DAILY INH ; Start 11/07/18 at 09:00 Aspirin (Aspirin) 81 mg DAILY PO Last administered on 11/07/18at 10:23; Admin Dose 81 MG; Start 11/07/18 at 10:00 Levalbuterol (Xopenex Neb) 1.25 mg Q4H RESP THERAPY HHN Last administered on 11/07/18at 16:06; Admin Dose 1.25 MG; Start 11/07/18 at 13:00 Ipratropium [place] (Atrovent 0.02% (Neb)) 0.5 mg Q4H RESP THERAPY HHN Last administered on 11/07/18at 16:06; Admin Dose 0.5 MG; Start 11/07/18 at 13:00 Bupropion HCl (Wellbutrin) 37.5 mg BID PO ; Start 11/07/18 at 21:00 Alprazolam (Xanax) 0.5 mg Q12H PRN PO ANXIETY; Start 11/07/18 at 10:00 Allergies: Coded Allergies: No Known Allergy (Unverified , 11/07/18) Social History Smoking Status: Never smoker Exam/Review of Systems Vital Signs Vitals Vital Signs Date Temp Pulse Resp B/P (MAP) Pulse Ox O2 O2 Flow FiO2 Time Delivery Rate 11/07/18 93 20:05 11/07/18 98.6 19 132/61 94 19:59 (84) 11/07/18 40 16:58 11/07/18 2.0 16:00 11/07/18 Nasal 14:00 Cannula Intake and Output 11/06/18 11/06/18 11/07/18 1515:00 23:00 07:00 IntakeIntake Total 50 ml BalanceBalance 50 ml Exam Constitutional: alert, oriented Psych: no complaints, nl mood/affect Head: normocephalic, atraumatic Neck: jvd (7-8cm) Respiratory: diminished breath sounds; No clear to auscultation Cardiovascular: regular rate and rhythm, systolic murmur (2/6 DREW); No edema Gastrointestinal: soft, non-tender; No distended Neurological: nl mental status, nl speech Labs Result Diagram: 11/07/18 0541 11/07/18 0541 Results 24hrs Laboratory Tests Test 11/07/18 05:32 11/07/18 05:39 11/07/18 05:41 11/07/18 08:23 Blood Gas Specimen Blood arterial Source Arterial Blood 11/07/2018 5:40:53 Date Drawn AM Arterial Blood pH 7.436 (Temp corrected) Arterial Blood 40.3 pCO2 (Temp correct) Arterial Blood pO2 459.4 H (Temp corrected) Arterial Blood 26.5 H HCO3 Arterial Blood 2.2 Base Excess Arterial Blood 99.6 Oxygen Saturation Floyd Test ACCEPTAB Arterial Blood Gas Left Radial Puncture Site Arterial 0.3 Blood Carboxyhemog lobin Arterial Blood 0.4 Methemoglobin Blood Gas A-a O2 213.3 H Differential Oxyhemoglobin 98.9 Percent Blood Gas 37.0 Temperature Blood Gas 16.0 Respiration Rate Blood Gas Actual 25 Respiration Rate Blood Gas Modality MASK - BIPAP FiO2 100.0 Blood Gas Pressure 10 Support Blood Gas 15/5 IPAP/EPAP Ratio Blood Gas Notified MR Whom Blood Gas Notified 11/07/2018 5:43:44 Time AM POC Venous Lactate 2.6 *H White Blood Count 14.8 #H Red Blood Count 3.40 #L Hemoglobin 9.8 #L Hematocrit 32.4 #L Mean Corpuscular 95.3 Volume Mean Corpuscular 28.8 L Hemoglobin Mean Corpuscular 30.2 L Hemoglobin Concent Red Cell 17.7 H Distribution Width Platelet Count 711 H Mean Platelet 9.5 # Volume Immature 6.600 H Granulocytes % Neutrophils % 30.4 L Segmented 14 L Neutrophils % (Manual) Band Neutrophils % 15 H (Manual) Lymphocytes % 39.8 Lymphocytes % 31 (Manual) Reactive 10 H Lymphocytes % (Manual) Monocytes % 22.6 H Monocytes % 17 H (Manual) Eosinophils % 0.1 Eosinophils % 3 (Manual) Basophils % 0.5 Basophils % 2 (Manual) Metamyelocytes % 2 H (manual) Myelocytes % 4 H (Manual) Promyelocytes % 2 H (Manual) Nucleated Red 5 H Blood Cells % Immature 0.970 H Granulocytes # Neutrophils # 4.5 Neutrophils # 2.4 (Manual) Band Neutrophils # 2.2 H Lymphocytes 4.5 H (Manual) Lymphocytes # 5.9 H Reactive 1.4 H Lymphocytes # Monocytes # 3.3 H Monocytes # 2.5 H (Manual) Eosinophils # 0.0 Basophils # 0.1 Basophils # 0.2 H (Manual) Metamyelocytes # 0.2 H Myelocytes # 0.5 H Promyelocytes # 0.2 H Nucleated Red 0.7 H Blood Cells # Platelet Estimate INCREASED Polychromasia 3+ Poikilocytosis 1+ Anisocytosis 1+ Tear Drop Cells 1+ Ovalocytes 1+ Prothrombin Time 13.6 14.4 Prothrombin Time 1.1 1.1 Ratio INR International 1.03 1.11 Normalized Ratio Activated 30.[address] Time Sodium Level 142 Potassium Level 3.6 Chloride Level 103 Carbon Dioxide 29 Level Anion Gap 10 Blood Urea 16 Nitrogen Creatinine 1.24 Est Glomerular Filtrat Rate mL/min Glucose Level 146 Calcium Level 8.9 Total Bilirubin 0.4 Direct Bilirubin 0.00 Indirect Bilirubin 0.4 Aspartate Amino 27 Transf (AST/SGOT) Alanine 15 Aminotransferase ( ALT/SGPT) Alkaline 81 Phosphatase Troponin I 0.013 B-Type Natriuretic 1220 H Peptide Total Protein 6.8 Albumin 3.7 Globulin 3.10 Albumin/Globulin 1.19 Ratio Lactic Acid Level 3.5 *H Magnesium Level 1.6 L Free Thyroxine 1.16 Test 11/07/18 10:30 11/07/18 10:34 11/07/18 14:40 Lactic Acid Level 2.8 *H 7.8 *H Creatine Kinase 28 55 Creatine Kinase 1.5 1.3 Index Creatinine Kinase 0.43 0.70 MB (Mass) Troponin I 0.018 0.021 POC Venous Lactate 2.3 *H Procalcitonin 0.46 H Medications Medications Current Medications Ondansetron HCl (Zofran Inj) 4 mg ER BRIDGE PRN IV NAUSEA/VOMITING; Start 11/07/18 at 07:00; Stop 11/08/18 at 06:59 Acetaminophen (Tylenol Tab) 650 mg ER BRIDGE PRN PO .MILD PAIN 1-3 OR TEMP; Start 11/07/18 at 07:00; Stop 11/08/18 at 06:59 IV Flush (NS 3 ml) 3 ml PER PROTOCOL IV ; Start 11/07/18 at 07:30 Ondansetron HCl (Zofran Inj) 4 mg Q6H PRN IV NAUSEA/VOMITING; Start 11/07/18 at 07:30 Acetaminophen (Tylenol Tab) 650 mg Q6H PRN PO .PAIN 1-3 OR TEMP; Start 11/07/18 at 07:30 Acetaminophen/ Hydrocodone Bitart ([place] (5/325)) 1 tab Q6H PRN PO .MOD PAIN 4- 6 Last administered on 11/07/18at 08:50; Admin Dose 1 TAB; Start 11/07/18 at 07:30 Morphine Sulfate (morphine) 2 mg Q4H PRN IV .SEVERE PAIN 7-10; Start 11/07/18 at 07:30 Docusate Sodium (Colace) 100 mg Q12H PRN PO .CONSTIPATION; Start 11/07/18 at 07:30 Magnesium Hydroxide (Milk Of Mag) 30 ml DAILY PRN PO .CONSTIPATION; Start 11/07/18 at 07:30 Pantoprazole (Protonix Tab) 40 mg DAILY@06 PO ; Start 11/08/18 at 06:00 Heparin Sodium (Porcine) (Heparin (5000 Units/1ml)) 5,000 unit Q12 SC Last administered on 11/07/18at 08:50; Admin Dose 5,000 UNIT; Start 11/07/18 at 09:00 Lorazepam (Ativan) 0.5 mg Q6H PRN IV ANXIETY; Start 11/07/18 at 07:30 Piperacillin Sod/ Tazobactam Sod 100 ml @ 200 mls/hr Q6 IVPB Last administered on 11/07/18at 18:31; Admin Dose 200 MLS/HR; Start 11/07/18 at 12:00 Vancomycin HCl (Vanco Iv Per Pharmacy) VANCOMYCIN PER PHARMACY NOTE XX ; Start 11/07/18 at 07:30 Nitroglycerin (Nitroglycerin (Sl Tab) 0.4 Mg) 1 tab Q5M PRN SL ANGINA; Start 11/07/18 at 07:30 Alendronate Sodium (Fosamax) 10 mg AC BREAKFAST PO ; Start 11/08/18 at 07:00 Escitalopram Oxalate (Lexapro) 20 mg DAILY PO Last administered on 11/07/18 08:50; Admin Dose 20 MG; Start 11/07/18 at 09:00 Vancomycin HCl 1.25 gm/Sodium Chloride 250 ml @ 83.333 mls/ hr Q24H IVPB Last administered on 11/07/18at 12:29; Admin Dose 83.333 MLS/HR; Start 11/07/18 at 13:00 Fluticasone/ Vilanterol (Breo Ellipta 100-25 Mcg Inh) 1 inh DAILY INH ; Start 11/07/18 at 09:00 Aspirin (Aspirin) 81 mg DAILY PO Last administered on 11/07/18at 10:23; Admin Dose 81 MG; Start 11/07/18 at 10:00 Levalbuterol (Xopenex Neb) 1.25 mg Q4H RESP THERAPY HHN Last administered on 11/07/18 16:06; Admin Dose 1.25 MG; Start 11/07/18 at 13:00 Ipratropium [place] (Atrovent 0.02% (Neb)) 0.5 mg Q4H RESP THERAPY HHN Last administered on 11/07/18at 16:06; Admin Dose 0.5 MG; Start 11/07/18 at 13:00 Bupropion HCl (Wellbutrin) 37.5 mg BID PO ; Start 11/07/18 at 21:00 Alprazolam (Xanax) 0.5 mg Q12H PRN PO ANXIETY; Start 11/07/18 at 10:00 ADRIANA OWENS Nov 07, 2018 20:19
[2018-11-07] MEDS: BUPROPION 75 MG TAB PO SCH (20:43)
[2018-11-07] MEDS: ALPRAZOLAM 0.5 MG TAB PO PRN (22:06)
[2018-11-08] VITALS (12 sets, daily range): BP systolic 119–145; BP diastolic 58–65; PULSE 73–94; RESP 18–21
[2018-11-08] MEDS: LEVALBUTEROL (NEB) 1.25 MG/0.5 ML AMP HHN SCH ×6 (00:36→21:12)
[2018-11-08] MEDS: IPRATROPIUM (NEB) 0.5 MG/2.5 ML AMP HHN SCH ×6 (00:36→21:12)
[2018-11-08] MEDS: PANTOPRAZOLE (EC) 40 MG TAB PO SCH (06:15)
[2018-11-08] MEDS: PIPER-TAZO 3.375 GM IV (PMX) 100 ML IVPB SCH ×3 (06:15→18:00)
[2018-11-08] MEDS ORDERED: MAGNESIUM SULFATE 1 GM/D5W 100 ML IVPB ONE (07:00)
[2018-11-08] MEDS: ALENDRONATE 10 MG TAB PO SCH (07:00)
--- NOTE | 2018-11-08 07:16 | CONS ---
Assessment/Plan Assessment/Plan Hospital Course (Demo Recall) 1) probable pneumonia symptoms were rather acute and he already feels better with breathing treatment will check procalcitonin now and in a.m. continue with vanco/zosyn at present but if procalcitonin is neg will change to just atypical pneumonia coverage CXR is not convincing for confirmation of pneumonia 11/08 - initial procalcitonin was mildly elevated continue with zosyn, change vanco to doxycycline for atypical coverage and MRSA nasal for MRSA, micro unable to find, will re-order sputum cx is NGTD WBC is back to WNL 2) Lung CA with resection and XRT pt is at higher risk for clots and he has LE edema will order robbi dopplers to LE but since his breathing is already better PE is less likely 11/08 - LE dopplers were neg 3) leonardo LE edema albumin is almost normal will check LE robbi dopplers but doubt he has a DVT but need to check 11/08 - leonardo LE dopplers were neg for DVT 4) a-fib 5) sleep apnea Consultation Date/Type/Reason Admit Date/Time Nov 07, 2018 at 06:55 Initial Consult Date 11/07/18 Type of Consult ID Requesting Provider: EFRA ROJAS NP Date/Time of Note DATE: 11/08/18 TIME: 07:11 24 HR Interval Summary Free Text/Dictation pt still has cough of yellow phlegm no N, V, D no CP Exam/Review of Systems Exam Vitals Vital Signs Date Temp Pulse Resp B/P (MAP) Pulse Ox O2 O2 Flow FiO2 Time Delivery Rate 11/08/18 2.0 06:10 11/08/18 90 96 40 04:56 11/08/18 98.8 18 125/58 04:00 (80) 11/07/18 Nasal 14:00 Cannula Intake and Output 11/07/18 11/07/18 11/08/18 1515:00 23:00 07:00 IntakeIntake Total 2400 ml 250 ml 600 ml BalanceBalance 2400 ml 250 ml 600 ml Constitutional: alert, oriented Eyes: nl sclera Respiratory: other (L base rhonchi) Cardiovascular: regular rate and rhythm Gastrointestinal: soft, non-tender Results Result Diagram: 11/08/18 0507 11/08/18 0506 Results 24hrs Laboratory Tests Test 11/07/18 08:23 11/07/18 10:30 11/07/18 10:34 11/07/18 14:40 Prothrombin Time 14.4 Prothrombin Time Ratio 1.1 INR International 1.11 Normalized Ratio Activated 30.5 Partial Thromboplast Time Lactic Acid Level 3.5 *H 2.8 *H 7.8 *H Magnesium Level 1.6 L Free Thyroxine 1.16 Creatine Kinase 28 55 Creatine Kinase Index 1.5 1.3 Creatinine Kinase MB 0.43 0.70 (Mass) Troponin I 0.018 0.021 POC Venous Lactate 2.3 *H Procalcitonin 0.46 H Test 11/07/18 19:37 11/08/18 05:02 11/08/18 05:06 11/08/18 05:07 Lactic Acid Level 3.0 *H 1.0 Sodium Level 143 Potassium Level 3.7 Chloride Level 110 Carbon Dioxide Level 29 Anion Gap 4 L Blood Urea Nitrogen 14 Creatinine 1.14 Est Glomerular Filtrat Rate mL/min Glucose Level 104 # Calcium Level 8.2 L Phosphorus Level 3.6 Magnesium Level 1.7 White Blood Count 9.1 # Red Blood Count 2.95 L Hemoglobin 8.4 L Hematocrit 27.8 L Mean Corpuscular Volume 94.2 Mean Corpuscular 28.5 L Hemoglobin Mean Corpuscular 30.2 L Hemoglobin Concent Red Cell Distribution 18.3 H Width Platelet Count 531 #H Mean Platelet Volume 9.6 Immature Granulocytes % 8.200 H Neutrophils % 49.7 Lymphocytes % 15.9 Monocytes % 25.3 H Eosinophils % 0.1 Basophils % 0.8 Nucleated Red Blood 3.1 H Cells % Immature Granulocytes # 0.750 H Neutrophils # 4.5 Lymphocytes # 1.5 Monocytes # 2.3 H Eosinophils # 0.0 Basophils # 0.1 Nucleated Red Blood 0.3 H Cells # Hemoglobin A1c 6.0 H Triglycerides Level 91 Cholesterol Level 113 LDL Cholesterol, 54 Calculated HDL Cholesterol 41 Cholesterol/HDL Ratio 2.7 Procalcitonin 0.34 H Thyroid Stimulating 0.722 Hormone (TSH) Medications Medication Current Medications IV Flush (NS 3 ml) 3 ml PER PROTOCOL IV ; Start 11/07/18 at 07:30 Ondansetron HCl (Zofran Inj) 4 mg Q6H PRN IV NAUSEA/VOMITING; Start 11/07/18 at 07:30 Acetaminophen (Tylenol Tab) 650 mg Q6H PRN PO .PAIN 1-3 OR TEMP; Start 11/07/18 at 07:30 Acetaminophen/ Hydrocodone Bitart ([place] (5/325)) 1 tab Q6H PRN PO .MOD PAIN 4- 6 Last administered on 11/07/18at 08:50; Admin Dose 1 TAB; Start 11/07/18 at 07:30 Morphine Sulfate (morphine) 2 mg Q4H PRN IV .SEVERE PAIN 7-10; Start 11/07/18 at 07:30 Docusate Sodium (Colace) 100 mg Q12H PRN PO .CONSTIPATION; Start 11/07/18 at 07:30 Magnesium Hydroxide (Milk Of Mag) 30 ml DAILY PRN PO .CONSTIPATION; Start 11/07/18 at 07:30 Pantoprazole (Protonix Tab) 40 mg DAILY@06 PO Last administered on 11/08/18at 06:15; Admin Dose 40 MG; Start 11/08/18 at 06:00 Heparin Sodium (Porcine) (Heparin (5000 Units/1ml)) 5,000 unit Q12 SC Last administered on 11/07/18at 20:48; Admin Dose 5,000 UNIT; Start 11/07/18 at 09:00 Lorazepam (Ativan) 0.5 mg Q6H PRN IV ANXIETY; Start 11/07/18 at 07:30 Piperacillin Sod/ Tazobactam Sod 100 ml @ 200 mls/hr Q6 IVPB Last administered on 11/08/18at 06:15; Admin Dose 200 MLS/HR; Start 11/07/18 at 12:00 Vancomycin HCl (Vanco Iv Per Pharmacy) VANCOMYCIN PER PHARMACY NOTE XX ; Start 11/07/18 at 07:30 Nitroglycerin (Nitroglycerin (Sl Tab) 0.4 Mg) 1 tab Q5M PRN SL ANGINA; Start 11/07/18 at 07:30 Alendronate Sodium (Fosamax) 10 mg AC BREAKFAST PO ; Start 11/08/18 at 07:00 Escitalopram Oxalate (Lexapro) 20 mg DAILY PO Last administered on 11/07/18at 08:50; Admin Dose 20 MG; Start 11/07/18 at 09:00 Vancomycin HCl 1.25 gm/Sodium Chloride 250 ml @ 83.333 mls/ hr Q24H IVPB Last administered on 11/07/18 12:29; Admin Dose 83.333 MLS/HR; Start 11/07/18 at 13:00 Fluticasone/ Vilanterol (Breo Ellipta 100-25 Mcg Inh) 1 inh DAILY INH ; Start 11/07/18 at 09:00 Aspirin (Aspirin) 81 mg DAILY PO Last administered on 11/07/18 10:23; Admin Dose 81 MG; Start 11/07/18 at 10:00 Levalbuterol (Xopenex Neb) 1.25 mg Q4H RESP THERAPY HHN Last administered on 11/08/18 04:56; Admin Dose 1.25 MG; Start 11/07/18 at 13:00 Ipratropium [place] (Atrovent 0.02% (Neb)) 0.5 mg Q4H RESP THERAPY HHN Last administered on 11/08/18 04:56; Admin Dose 0.5 MG; Start 11/07/18 at 13:00 Bupropion HCl (Wellbutrin) 37.5 mg BID PO Last administered on 11/07/18 20:43; Admin Dose 37.5 MG; Start 11/07/18 at 21:00 Alprazolam (Xanax) 0.5 mg Q12H PRN PO ANXIETY Last administered on 11/07/18 22:06; Admin Dose 0.5 MG; Start 11/07/18 at 10:00 Magnesium Sulfate/ Dextrose 100 ml @ 100 mls/hr ONCE ONCE IVPB ; Start 11/08/18 at 07:00; Stop 11/08/18 at 07:59 CARINA STODDARD MD Nov 08, 2018 07:16
[2018-11-08] MEDS: ESCITALOPRAM 10 MG TAB PO SCH (08:44)
[2018-11-08] MEDS: ASPIRIN 81 MG TAB PO SCH (08:45)
[2018-11-08] MEDS: BUPROPION 75 MG TAB PO SCH ×2 (08:45→20:45)
[2018-11-08] MEDS: HEPARIN 5,000 UNIT/1 ML VIAL SC SCH ×2 (08:56→20:58)
[2018-11-08] MEDS: FLUTICASONE/VILANTEROL 100-25 INH SCH (09:00)
[2018-11-08] MEDS ORDERED: POTASSIUM CHLORIDE (SR) 20 MEQ TAB PO STA (10:18)
--- NOTE | 2018-11-08 10:22 | CONS ---
Assessment/Plan Assessment/Plan Assessment/Plan (Daily) Assessment and recommendations; next 1. Patient admitted with possibly pneumonia/bronchitis with interval improvement on current antimicrobial and bronchodilator regimen. Leukocytosis is improving. 2. Prior history of left lung cancer, status post resection with chemotherapy and radiation. Based upon chest x-ray there are extensive fibrotic changes involving the left lung. 3. COPD. 4. Osteoporosis. 5. Possible underlying sleep apnea. 6. History of depression. Continue current supportive care. Patient responding well to current treatment regimen. Consultation Date/Type/Reason Admit Date/Time Nov 07, 2018 at 06:55 Initial Consult Date 11/07/18 Type of Consult Pulmonary Patient's condition is stable. Denies any shortness of breath at rest. Complains of scant cough without any sputum production wheezing or hemoptysis. Denies any fever or chills. General exam; elderly male, awake alert, on room air. Sitting on the edge of the bed. Currently in no distress. Reason for Consultation H EENT exam; supple neck, no JVD. No lymphadenopathy. Midline trachea. No thyromegaly. No neck masses. Patient has a multiple carious teeth. Chest exam; diminished breath sounds bilaterally. No added sounds. S1-S2 audible, no murmurs. Regular rhythm. Abdomen exam; soft, nontender. Protuberant. Bowel sounds audible. Extremity exam; no peripheral edema clubbing. [employer] exam; no focal deficit. Requesting Provider: EFRA ROJAS NP Date/Time of Note DATE: 11/08/18 TIME: 10:20 Exam/Review of Systems Exam Vitals Vital Signs Date Temp Pulse Resp B/P (MAP) Pulse Ox O2 O2 Flow FiO2 Time Delivery Rate 11/08/18 2.0 08:26 11/08/18 66 22 92 21 08:22 11/08/18 99.0 123/61 Nasal 07:14 (81) Cannula Intake and Output 11/07/18 11/07/18 11/08/18 1515:00 23:00 07:00 IntakeIntake Total 2400 ml 250 ml 600 ml BalanceBalance 2400 ml 250 ml 600 ml Results Result Diagram: 11/08/18 0507 11/08/18 0506 Results 24hrs Laboratory Tests Test 11/07/18 10:30 11/07/18 10:34 11/07/18 14:40 6/4/19 19:37 Lactic Acid Level 2.8 *H 7.8 *H 3.0 *H Creatine Kinase 28 55 Creatine Kinase Index 1.5 1.3 Creatinine Kinase MB 0.43 0.70 (Mass) Troponin I 0.018 0.021 POC Venous Lactate 2.3 *H Procalcitonin 0.46 H Test 11/08/18 05:02 11/08/18 05:06 11/08/18 05:07 Lactic Acid Level 1.0 Sodium Level 143 Potassium Level 3.7 Chloride Level 110 Carbon Dioxide Level 29 Anion Gap 4 L Blood Urea Nitrogen 14 Creatinine 1.14 Est Glomerular Filtrat Rate mL/min Glucose Level 104 # Calcium Level 8.2 L Phosphorus Level 3.6 Magnesium Level 1.7 White Blood Count 9.1 # Red Blood Count 2.95 L Hemoglobin 8.4 L Hematocrit 27.8 L Mean Corpuscular Volume 94.2 Mean Corpuscular 28.5 L Hemoglobin Mean Corpuscular 30.2 L Hemoglobin Concent Red Cell Distribution 18.3 H Width Platelet Count 531 #H Mean Platelet Volume 9.6 Immature Granulocytes % 8.200 H Neutrophils % 49.7 Lymphocytes % 15.9 Monocytes % 25.3 H Eosinophils % 0.1 Basophils % 0.8 Nucleated Red Blood 3.1 H Cells % Immature Granulocytes # 0.750 H Neutrophils # 4.5 Lymphocytes # 1.5 Monocytes # 2.3 H Eosinophils # 0.0 Basophils # 0.1 Nucleated Red Blood 0.3 H Cells # Hemoglobin A1c 6.0 H Triglycerides Level 91 Cholesterol Level 113 LDL Cholesterol, 54 Calculated HDL Cholesterol 41 Cholesterol/HDL Ratio 2.7 Procalcitonin 0.34 H Thyroid Stimulating 0.722 Hormone (TSH) Medications Medication Current Medications IV Flush (NS 3 ml) 3 ml PER PROTOCOL IV ; Start 11/07/18 at 07:30 Ondansetron HCl (Zofran Inj) 4 mg Q6H PRN IV NAUSEA/VOMITING; Start 11/07/18 at 07:30 Acetaminophen (Tylenol Tab) 650 mg Q6H PRN PO .PAIN 1-3 OR TEMP; Start 11/07/18 at 07:30 Acetaminophen/ Hydrocodone Bitart ([place] (5/325)) 1 tab Q6H PRN PO .MOD PAIN 4- 6 Last administered on 11/07/18at 08:50; Admin Dose 1 TAB; Start 11/07/18 at 07:30 Morphine Sulfate (morphine) 2 mg Q4H PRN IV .SEVERE PAIN 7-10; Start 11/07/18 at 07:30 Docusate Sodium (Colace) 100 mg Q12H PRN PO .CONSTIPATION; Start 11/07/18 at 07:30 Magnesium Hydroxide (Milk Of Mag) 30 ml DAILY PRN PO .CONSTIPATION; Start 11/07/18 at 07:30 Pantoprazole (Protonix Tab) 40 mg DAILY@06 PO Last administered on 11/08/18at 06: 15; Admin Dose 40 MG; Start 11/08/18 at 06:00 Heparin Sodium (Porcine) (Heparin (5000 Units/1ml)) 5,000 unit Q12 SC Last administered on 11/08/18at 08:56; Admin Dose 5,000 UNIT; Start 11/07/18 at 09:00 Lorazepam (Ativan) 0.5 mg Q6H PRN IV ANXIETY; Start 11/07/18 at 07:30 Piperacillin Sod/ Tazobactam Sod 100 ml @ 200 mls/hr Q6 IVPB Last administered on 11/08/18at 06:15; Admin Dose 200 MLS/HR; Start 11/07/18 at 12:00 Vancomycin HCl (Vanco Iv Per Pharmacy) VANCOMYCIN PER PHARMACY NOTE XX ; Start 11/07/18 at 07:30 Nitroglycerin (Nitroglycerin (Sl Tab) 0.4 Mg) 1 tab Q5M PRN SL ANGINA; Start 11/07/18 at 07:30 Alendronate Sodium (Fosamax) 10 mg AC BREAKFAST PO ; Start 11/08/18 at 07:00 Escitalopram Oxalate (Lexapro) 20 mg DAILY PO Last administered on 11/08/18at 08:44; Admin Dose 20 MG; Start 11/07/18 at 09:00 Vancomycin HCl 1.25 gm/Sodium Chloride 250 ml @ 83.333 mls/ hr Q24H IVPB Last administered on 11/07/18at 12:29; Admin Dose 83.333 MLS/HR; Start 11/07/18 at 13:00 Fluticasone/ Vilanterol (Breo Ellipta 100-25 Mcg Inh) 1 inh DAILY INH ; Start 11/07/18 at 09:00 Aspirin (Aspirin) 81 mg DAILY PO Last administered on 11/08/18 08:45; Admin Dose 81 MG; Start 11/07/18 at 10:00 Levalbuterol (Xopenex Neb) 1.25 mg Q4H RESP THERAPY HHN Last administered on 11/08/18 08:20; Admin Dose 1.25 MG; Start 11/07/18 at 13:00 Ipratropium [place] (Atrovent 0.02% (Neb)) 0.5 mg Q4H RESP THERAPY HHN Last administered on 11/08/18 08:20; Admin Dose 0.5 MG; Start 11/07/18 at 13:00 Bupropion HCl (Wellbutrin) 37.5 mg BID PO Last administered on 11/08/18 08:45; Admin Dose 37.5 MG; Start 11/07/18 at 21:00 Alprazolam (Xanax) 0.5 mg Q12H PRN PO ANXIETY Last administered on 11/07/18 22:06; Admin Dose 0.5 MG; Start 11/07/18 at 10:00 SAMANTHA LAWSON Nov 08, 2018 10:22
--- NOTE | 2018-11-08 12:07 | PN ---
Date/Time of Note Date/Time of Note DATE: 11/08/18 TIME: 11:44 Assessment/Plan VTE Prophylaxis Risk score (from Ns)>0 risk: 4 SCD applied (from Ns): No SCD contraindicated: other Pharmacological prophylaxis: heparin Lines/Catheters IV Catheter Type (from [facility]): PORT-A-CATH/ NOT ACCESSED Assessment/Plan Hospital Course SUBJECTIVE: No fevers. Off oxygen. No respiratory distress OBJECTIVE: Vital signs-see below PHYSICAL EXAM: Constitutional: elderly obese male,not in acute distress. HEENT: Head atraumatic and normocephalic. Eyes: Extraocular muscles intact. Anicteric sclerae. Pupils equal bilaterally, reactive to light. NECK: Supple without lymph node. CHEST: Diminished bibasilar. No wheezing. HEART: S1, S2. Regular rate and rhythm. ABDOMEN: Protuberant abdomen. Soft/non tender with no rebound tenderness. Bowel sounds were present. EXTREMITIES:+2 Edema BLE. No cyanosis, clubbing NEUROLOGIC: Alert and oriented x3. No focal deficit. No sensory deficit. PSYCHOSOCIAL: No signs of depression. INTEGUMENTARY: No open wounds. ASSESSMENT AND PLAN:78 yo M w/ page for lung carcinoma status post lung surgery 2013 followed by radiation, on chemo regimen,who had chemo last wk,sleep apnea w/home CPAP use here w/SOB/Cough/Fevers x1 day duration found to have sepsis with pneumonia Sepsis, POA -Suspect source: Respiratory -Resolving. -DC 1/2 growing gram positive. ABX per ID -f/u final CS Possible Healthcare acquired pneumonia -ABX per ID -CONT. Breathing treatments with levalbuterol/Atrovent -Cultures Atrial fibrillation,new onset -Appreciate cardiology recommendations. 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 -Outpatient oncology follow-up after discharge -Pain control is LOI/home CPAP use -Nocturnal CPAP -Patient pulmonary follow-up Depression/anxiety syndrome -cont home medications Chronic pain -PRN opiates Obesity with BMI 37 -Weight reduction advised DVT prophylaxis: Heparin PUD prophylaxis: PPI Disposition:Cont. management. Cultures. Await for further clinical improvement. Follow-up pulmonary/ID recommendations. Patient was seen in collaboration with Dr. Marinelli. Result Diagram: 11/08/18 0507 11/08/18 0506 Results 24hrs Laboratory Tests Test 11/07/18 14:40 11/07/18 19:37 11/08/18 05:02 11/08/18 05:06 Lactic Acid Level 7.8 *H 3.0 *H 1.0 Creatine Kinase 55 Creatine Kinase Index 1.3 Creatinine Kinase MB 0.70 (Mass) Troponin I 0.021 Procalcitonin 0.46 H Sodium Level 143 Potassium Level 3.7 Chloride Level 110 Carbon Dioxide Level 29 Anion Gap 4 L Blood Urea Nitrogen 14 Creatinine 1.14 Est Glomerular Filtrat Rate mL/min Glucose Level 104 # Calcium Level 8.2 L Phosphorus Level 3.6 Magnesium Level 1.7 Test 11/08/18 05:07 White Blood Count 9.1 # Red Blood Count 2.95 L Hemoglobin 8.4 L Hematocrit 27.8 L Mean Corpuscular Volume 94.2 Mean Corpuscular 28.5 L Hemoglobin Mean Corpuscular 30.2 L Hemoglobin Concent Red Cell Distribution 18.3 H Width Platelet Count 531 #H Mean Platelet Volume 9.6 Immature Granulocytes % 8.200 H Neutrophils % 49.7 Lymphocytes % 15.9 Monocytes % 25.3 H Eosinophils % 0.1 Basophils % 0.8 Nucleated Red Blood 3.1 H Cells % Immature Granulocytes # 0.750 H Neutrophils # 4.5 Lymphocytes # 1.5 Monocytes # 2.3 H Eosinophils # 0.0 Basophils # 0.1 Nucleated Red Blood 0.3 H Cells # Hemoglobin A1c 6.0 H Triglycerides Level 91 Cholesterol Level 113 LDL Cholesterol, 54 Calculated HDL Cholesterol 41 Cholesterol/HDL Ratio 2.7 Procalcitonin 0.34 H Thyroid Stimulating 0.722 Hormone (TSH) Exam/Review of Systems Exam Vitals Vital Signs Date Temp Pulse Resp B/P (MAP) Pulse Ox O2 O2 Flow FiO2 Time Delivery Rate 11/08/18 2.0 08:26 11/08/18 66 22 92 21 08:22 11/08/18 99.0 123/61 Nasal 07:14 (81) Cannula Intake and Output 11/07/18 11/07/18 11/08/18 1515:00 23:00 07:00 IntakeIntake Total 2400 ml 250 ml 600 ml BalanceBalance 2400 ml 250 ml 600 ml Results Results 24hrs Laboratory Tests Test 11/07/18 14:40 11/07/18 19:37 11/08/18 05:02 11/08/18 05:06 Lactic Acid Level 7.8 *H 3.0 *H 1.0 Creatine Kinase 55 Creatine Kinase Index 1.3 Creatinine Kinase MB 0.70 (Mass) Troponin I 0.021 Procalcitonin 0.46 H Sodium Level 143 Potassium Level 3.7 Chloride Level 110 Carbon Dioxide Level 29 Anion Gap 4 L Blood Urea Nitrogen 14 Creatinine 1.14 Est Glomerular Filtrat Rate mL/min Glucose Level 104 # Calcium Level 8.2 L Phosphorus Level 3.6 Magnesium Level 1.7 Test 11/08/18 05:07 White Blood Count 9.1 # Red Blood Count 2.95 L Hemoglobin 8.4 L Hematocrit 27.8 L Mean Corpuscular Volume 94.2 Mean Corpuscular 28.5 L Hemoglobin Mean Corpuscular 30.2 L Hemoglobin Concent Red Cell Distribution 18.3 H Width Platelet Count 531 #H Mean Platelet Volume 9.6 Immature Granulocytes % 8.200 H Neutrophils % 49.7 Lymphocytes % 15.9 Monocytes % 25.3 H Eosinophils % 0.1 Basophils % 0.8 Nucleated Red Blood 3.1 H Cells % Immature Granulocytes # 0.750 H Neutrophils # 4.5 Lymphocytes # 1.5 Monocytes # 2.3 H Eosinophils # 0.0 Basophils # 0.1 Nucleated Red Blood 0.3 H Cells # Hemoglobin A1c 6.0 H Triglycerides Level 91 Cholesterol Level 113 LDL Cholesterol, 54 Calculated HDL Cholesterol 41 Cholesterol/HDL Ratio 2.7 Procalcitonin 0.34 H Thyroid Stimulating 0.722 Hormone (TSH) Medications Medication Current Medications IV Flush (NS 3 ml) 3 ml PER PROTOCOL IV ; Start 11/07/18 at 07:30 Ondansetron HCl (Zofran Inj) 4 mg Q6H PRN IV NAUSEA/VOMITING; Start 11/07/18 at 07:30 Acetaminophen (Tylenol Tab) 650 mg Q6H PRN PO .PAIN 1-3 OR TEMP; Start 11/07/18 at 07:30 Acetaminophen/ Hydrocodone Bitart ([place] (5/325)) 1 tab Q6H PRN PO .MOD PAIN 4- 6 Last administered on 11/07/18at 08:50; Admin Dose 1 TAB; Start 11/07/18 at 07:30 Morphine Sulfate (morphine) 2 mg Q4H PRN IV .SEVERE PAIN 7-10; Start 11/07/18 at 07:30 Docusate Sodium (Colace) 100 mg Q12H PRN PO .CONSTIPATION; Start 11/07/18 at 07:30 Magnesium Hydroxide (Milk Of Mag) 30 ml DAILY PRN PO .CONSTIPATION; Start 11/07/18 at 07:30 Pantoprazole (Protonix Tab) 40 mg DAILY@06 PO Last administered on 11/08/18at 06:15; Admin Dose 40 MG; Start 11/08/18 at 06:00 Heparin Sodium (Porcine) (Heparin (5000 Units/1ml)) 5,000 unit Q12 SC Last administered on 11/08/18at 08:56; Admin Dose 5,000 UNIT; Start 11/07/18 at 09:00 Lorazepam (Ativan) 0.5 mg Q6H PRN IV ANXIETY; Start 11/07/18 at 07:30 Piperacillin Sod/ Tazobactam Sod 100 ml @ 200 mls/hr Q6 IVPB Last administered on 11/08/18at 06:15; Admin Dose 200 MLS/HR; Start 11/07/18 at 12:00 Vancomycin HCl (Vanco Iv Per Pharmacy) VANCOMYCIN PER PHARMACY NOTE XX ; Start 11/07/18 at 07:30 Nitroglycerin (Nitroglycerin (Sl Tab) 0.4 Mg) 1 tab Q5M PRN SL ANGINA; Start 11/07/18 at 07:30 Alendronate Sodium (Fosamax) 10 mg AC BREAKFAST PO ; Start 11/08/18 at 07:00 Escitalopram Oxalate (Lexapro) 20 mg DAILY PO Last administered on 11/08/18at 08:44; Admin Dose 20 MG; Start 11/07/18 at 09:00 Vancomycin HCl 1.25 gm/Sodium Chloride 250 ml @ 83.333 mls/ hr Q24H IVPB Last administered on 11/07/18at 12:29; Admin Dose 83.333 MLS/HR; Start 11/07/18 at 13:00 Fluticasone/ Vilanterol (Breo Ellipta 100-25 Mcg Inh) 1 inh DAILY INH ; Start 11/07/18 at 09:00 Aspirin (Aspirin) 81 mg DAILY PO Last administered on 11/08/18at 08:45; Admin Dose 81 MG; Start 11/07/18 at 10:00 Levalbuterol (Xopenex Neb) 1.25 mg Q4H RESP THERAPY HHN Last administered on 11/08/18 08:20; Admin Dose 1.25 MG; Start 11/07/18 at 13:00 Ipratropium [place] (Atrovent 0.02% (Neb)) 0.5 mg Q4H RESP THERAPY HHN Last administered on 11/08/18 08:20; Admin Dose 0.5 MG; Start 11/07/18 at 13:00 Bupropion HCl (Wellbutrin) 37.5 mg BID PO Last administered on 11/08/18 08:45; Admin Dose 37.5 MG; Start 11/07/18 at 21:00 Alprazolam (Xanax) 0.5 mg Q12H PRN PO ANXIETY Last administered on 11/07/18at 22:06; Admin Dose 0.5 MG; Start 11/07/18 at 10:00 EFRA ROJAS NP Nov 08, 2018 12:02
[2018-11-08] MEDS: VANCOMYCIN HCL 1.25 GM in SOD CHLORIDE 0.9% 250 ML IVPB SCH (13:00)
--- NOTE | 2018-11-08 15:35 | CONS ---
Assessment/Plan Assessment/Plan Hospital Course (Demo Recall) Paroxysmal atrial fibrillation: new onset. CHADSVASC is 2 and he would qualify for chronic anticoagulation. Echo with preserved EF. Now back in sinus but intermittent afib PNA/sepsis Stage 4 lung cancer COPD LOI -pt and family agreeable to anticoagulation -will check head CT to make sure no brain mets and if normal, start Eliquis 5mg BID -start diltiazem 120mg daily -antibiotics/nebs Consultation Date/Type/Reason Admit Date/Time Nov 07, 2018 at 06:55 Initial Consult Date 11/07/18 Type of Consult Cardiology Requesting Provider: ERFA ROJAS NP Date/Time of Note DATE: 11/08/18 TIME: 15:33 24 HR Interval Summary Free Text/Dictation Remains in sinus mostly with some episodes of afib. at bedside Exam/Review of Systems Vital Signs Vitals Vital Signs Date Temp Pulse Resp B/P (MAP) Pulse Ox O2 O2 Flow FiO2 Time Delivery Rate 11/08/18 66 20 93 21 12:51 11/08/18 99.2 132/65 Nasal 11:59 (87) Cannula 11/08/18 2.0 08:26 Intake and Output 11/07/18 11/07/18 11/08/18 1515:00 23:00 07:00 IntakeIntake Total 2400 ml 250 ml 600 ml BalanceBalance 2400 ml 250 ml 600 ml Exam Constitutional: alert, oriented Psych: no complaints, nl mood/affect Head: normocephalic, atraumatic Neck: supple; No jvd Respiratory: other (ronchi left side); No clear to auscultation Cardiovascular: regular rate and rhythm, systolic murmur (2/6 DREW); No edema Gastrointestinal: soft, non-tender; No distended Neurological: nl mental status, nl speech Labs Result Diagram: 11/08/18 0507 11/08/18 0506 Results 24hrs Laboratory Tests Test 11/07/18 19:37 11/08/18 05:02 11/08/18 05:06 11/08/18 05:07 Lactic Acid Level 3.0 *H 1.0 Sodium Level 143 Potassium Level 3.7 Chloride Level 110 Carbon Dioxide Level 29 Anion Gap 4 L Blood Urea Nitrogen 14 Creatinine 1.14 Est Glomerular Filtrat Rate mL/min Glucose Level 104 # Calcium Level 8.2 L Phosphorus Level 3.6 Magnesium Level 1.7 White Blood Count 9.1 # Red Blood Count 2.95 L Hemoglobin 8.4 L Hematocrit 27.8 L Mean Corpuscular Volume 94.2 Mean Corpuscular 28.5 L Hemoglobin Mean Corpuscular 30.2 L Hemoglobin Concent Red Cell Distribution 18.3 H Width Platelet Count 531 #H Mean Platelet Volume 9.6 Immature Granulocytes % 8.200 H Neutrophils % 49.7 Lymphocytes % 15.9 Monocytes % 25.3 H Eosinophils % 0.1 Basophils % 0.8 Nucleated Red Blood 3.1 H Cells % Immature Granulocytes # 0.750 H Neutrophils # 4.5 Lymphocytes # 1.5 Monocytes # 2.3 H Eosinophils # 0.0 Basophils # 0.1 Nucleated Red Blood 0.3 H Cells # Hemoglobin A1c 6.0 H Triglycerides Level 91 Cholesterol Level 113 LDL Cholesterol, 54 Calculated HDL Cholesterol 41 Cholesterol/HDL Ratio 2.7 Procalcitonin 0.34 H Thyroid Stimulating 0.722 Hormone (TSH) Medications Medications Current Medications IV Flush (NS 3 ml) 3 ml PER PROTOCOL IV ; Start 11/07/18 at 07:30 Ondansetron HCl (Zofran Inj) 4 mg Q6H PRN IV NAUSEA/VOMITING; Start 11/07/18 at 07:30 Acetaminophen (Tylenol Tab) 650 mg Q6H PRN PO .PAIN 1-3 OR TEMP; Start 11/07/18 at 07:30 Acetaminophen/ Hydrocodone Bitart ([place] (5/325)) 1 tab Q6H PRN PO .MOD PAIN 4- 6 Last administered on 11/07/18at 08:50; Admin Dose 1 TAB; Start 11/07/18 at 07:30 Morphine Sulfate (morphine) 2 mg Q4H PRN IV .SEVERE PAIN 7-10; Start 11/07/18 at 07:30 Docusate Sodium (Colace) 100 mg Q12H PRN PO .CONSTIPATION; Start 11/07/18 at 07:30 Magnesium Hydroxide (Milk Of Mag) 30 ml DAILY PRN PO .CONSTIPATION; Start 11/07/18 at 07:30 Pantoprazole (Protonix Tab) 40 mg DAILY@06 PO Last administered on 11/08/18at 06:15; Admin Dose 40 MG; Start 11/08/18 at 06:00 Heparin Sodium (Porcine) (Heparin (5000 Units/1ml)) 5,000 unit Q12 SC Last administered on 11/08/18 08:56; Admin Dose 5,000 UNIT; Start 11/07/18 at 09:00 Lorazepam (Ativan) 0.5 mg Q6H PRN IV ANXIETY; Start 11/07/18 at 07:30 Piperacillin Sod/ Tazobactam Sod 100 ml @ 200 mls/hr Q6 IVPB Last administered on 11/08/18 12:54; Admin Dose 200 MLS/HR; Start 11/07/18 at 12:00 Vancomycin HCl (Vanco Iv Per Pharmacy) VANCOMYCIN PER PHARMACY NOTE XX ; Start 11/07/18 at 07:30 Nitroglycerin (Nitroglycerin (Sl Tab) 0.4 Mg) 1 tab Q5M PRN SL ANGINA; Start 11/07/18 at 07:30 Alendronate Sodium (Fosamax) 10 mg AC BREAKFAST PO Last administered on 11/08/18 07:00; Admin Dose 10 MG; Start 11/08/18 at 07:00 Escitalopram Oxalate (Lexapro) 20 mg DAILY PO Last administered on 11/08/18 08:44; Admin Dose 20 MG; Start 11/07/18 at 09:00 Vancomycin HCl 1.25 gm/Sodium Chloride 250 ml @ 83.333 mls/ hr Q24H IVPB Last administered on 11/07/18 12:29; Admin Dose 83.333 MLS/HR; Start 11/07/18 at 13:00 Fluticasone/ Vilanterol (Breo Ellipta 100-25 Mcg Inh) 1 inh DAILY INH Last administered on 11/08/18 09:00; Admin Dose 1 INH; Start 11/07/18 at 09:00 Aspirin (Aspirin) 81 mg DAILY PO Last administered on 11/08/18 08:45; Admin Dose 81 MG; Start 11/07/18 at 10:00 Levalbuterol (Xopenex Neb) 1.25 mg Q4H RESP THERAPY HHN Last administered on 11/08/18 12:50; Admin Dose 1.25 MG; Start 11/07/18 at 13:00 Ipratropium [place] (Atrovent 0.02% (Neb)) 0.5 mg Q4H RESP THERAPY HHN Last administered on 11/08/18 12:50; Admin Dose 0.5 MG; Start 11/07/18 at 13:00 Bupropion HCl (Wellbutrin) 37.5 mg BID PO Last administered on 11/08/18 08:45; Admin Dose 37.5 MG; Start 11/07/18 at 21:00 Alprazolam (Xanax) 0.5 mg Q12H PRN PO ANXIETY Last administered on 11/07/18 22:06; Admin Dose 0.5 MG; Start 11/07/18 at 10:00 ADRIANA OWENS Nov 08, 2018 15:35
[2018-11-08] MEDS: DILTIAZEM (CD) 120 MG CAP PO SCH (16:52)
[2018-11-08] MEDS: ALPRAZOLAM 0.5 MG TAB PO PRN (20:45)
[2018-11-09] VITALS (12 sets, daily range): BP systolic 114–154; BP diastolic 59–66; PULSE 82–114; RESP 18–22
[2018-11-09] MEDS: PIPER-TAZO 3.375 GM IV (PMX) 100 ML IVPB SCH ×4 (00:09→18:08)
[2018-11-09] MEDS: IPRATROPIUM (NEB) 0.5 MG/2.5 ML AMP HHN SCH ×6 (01:00→21:51)
[2018-11-09] MEDS: LEVALBUTEROL (NEB) 1.25 MG/0.5 ML AMP HHN SCH ×6 (01:00→21:51)
[2018-11-09] MEDS: PANTOPRAZOLE (EC) 40 MG TAB PO SCH (06:21)
--- NOTE | 2018-11-09 06:39 | CONS ---
Assessment/Plan Assessment/Plan Hospital Course (Demo Recall) 1) probable pneumonia symptoms were rather acute and he already feels better with breathing treatment will check procalcitonin now and in a.m. continue with vanco/zosyn at present but if procalcitonin is neg will change to just atypical pneumonia coverage CXR is not convincing for confirmation of pneumonia 11/08 - initial procalcitonin was mildly elevated continue with zosyn, change vanco to doxycycline for atypical coverage and MRSA nasal for MRSA, micro unable to find, will re-order sputum cx is NGTD WBC is back to WNL 11/09 - sputum cx is neg d/c vanco, start azithro if pt is doing ok tomorrow will change zosyn to augmentin tomorrow 2) Lung CA with resection and XRT pt is at higher risk for clots and he has LE edema will order robbi dopplers to LE but since his breathing is already better PE is less likely 11/08 - LE dopplers were neg 3) leonardo LE edema albumin is almost normal will check LE robbi dopplers but doubt he has a DVT but need to check 11/08 - leonardo LE dopplers were neg for DVT 4) a-fib 5) sleep apnea 6) CoNS bacteremia 11/09 - only one bottle is positive, this likely is contaminant d/c vanco Consultation Date/Type/Reason Admit Date/Time Nov 07, 2018 at 06:55 Initial Consult Date 11/07/18 Type of Consult ID Requesting Provider: EFRA ROJAS NP Date/Time of Note DATE: 11/09/18 TIME: 06:36 24 HR Interval Summary Free Text/Dictation pt states he is not good because he is old no V, D no pain anyplace breathing is ok Exam/Review of Systems Exam Vitals Vital Signs Date Temp Pulse Resp B/P (MAP) Pulse Ox O2 O2 Flow FiO2 Time Delivery Rate 11/09/18 82 20 94 Nasal 3.0 05:56 Cannula 11/09/18 99.0 140/63 03:50 (88) 11/08/18 30 21:13 Intake and Output 11/08/18 11/08/18 11/09/18 1515:00 23:00 07:00 IntakeIntake Total 560 ml 850 ml BalanceBalance 560 ml 850 ml Constitutional: alert Eyes: nl sclera ENMT: mucosa pink and moist Respiratory: clear to auscultation Cardiovascular: regular rate and rhythm Gastrointestinal: soft, non-tender Results Result Diagram: 11/08/18 0507 11/08/18 0506 Medications Medication Current Medications IV Flush (NS 3 ml) 3 ml PER PROTOCOL IV ; Start 11/07/18 at 07:30 Ondansetron HCl (Zofran Inj) 4 mg Q6H PRN IV NAUSEA/VOMITING; Start 11/07/18 at 07:30 Acetaminophen (Tylenol Tab) 650 mg Q6H PRN PO .PAIN 1-3 OR TEMP; Start 11/07/18 at 07:30 Acetaminophen/ Hydrocodone Bitart ([place] (5/325)) 1 tab Q6H PRN PO .MOD PAIN 4- 6 Last administered on 11/07/18at 08:50; Admin Dose 1 TAB; Start 11/07/18 at 07:30 Morphine Sulfate (morphine) 2 mg Q4H PRN IV .SEVERE PAIN 7-10; Start 11/07/18 at 07:30 Docusate Sodium (Colace) 100 mg Q12H PRN PO .CONSTIPATION; Start 11/07/18 at 07:30 Magnesium Hydroxide (Milk Of Mag) 30 ml DAILY PRN PO .CONSTIPATION; Start 11/07/18 at 07:30 Pantoprazole (Protonix Tab) 40 mg DAILY@06 PO Last administered on 11/09/18at 06:21; Admin Dose 40 MG; Start 11/08/18 at 06:00 Heparin Sodium (Porcine) (Heparin (5000 Units/1ml)) 5,000 unit Q12 SC Last administered on 11/08/18at 20:58; Admin Dose 5,000 UNIT; Start 11/07/18 at 09:00 Lorazepam (Ativan) 0.5 mg Q6H PRN IV ANXIETY; Start 11/07/18 at 07:30 Piperacillin Sod/ Tazobactam Sod 100 ml @ 200 mls/hr Q6 IVPB Last administered on 11/09/18at 06:20; Admin Dose 200 MLS/HR; Start 11/07/18 at 12:00 Nitroglycerin (Nitroglycerin (Sl Tab) 0.4 Mg) 1 tab Q5M PRN SL ANGINA; Start 11/07/18 at 07:30 Alendronate Sodium (Fosamax) 10 mg AC BREAKFAST PO Last administered on 11/08/18 07:00; Admin Dose 10 MG; Start 11/08/18 at 07:00 Escitalopram Oxalate (Lexapro) 20 mg DAILY PO Last administered on 11/08/18 08:44; Admin Dose 20 MG; Start 11/07/18 at 09:00 Fluticasone/ Vilanterol (Breo Ellipta 100-25 Mcg Inh) 1 inh DAILY INH Last administered on 11/08/18 09:00; Admin Dose 1 INH; Start 11/07/18 at 09:00 Aspirin (Aspirin) 81 mg DAILY PO Last administered on 11/08/18 08:45; Admin Dose 81 MG; Start 11/07/18 at 10:00 Levalbuterol (Xopenex Neb) 1.25 mg Q4H RESP THERAPY HHN Last administered on 11/09/18 06:02; Admin Dose 1.25 MG; Start 11/07/18 at 13:00 Ipratropium [place] (Atrovent 0.02% (Neb)) 0.5 mg Q4H RESP THERAPY HHN Last administered on 11/09/18 06:01; Admin Dose 0.5 MG; Start 11/07/18 at 13:00 Bupropion HCl (Wellbutrin) 37.5 mg BID PO Last administered on 11/08/18 20:45; Admin Dose 37.5 MG; Start 11/07/18 at 21:00 Alprazolam (Xanax) 0.5 mg Q12H PRN PO ANXIETY Last administered on 11/08/18 20:45; Admin Dose 0.5 MG; Start 11/07/18 at 10:00 Diltiazem HCl (Cardizem Cd) 120 mg DAILY PO Last administered on 11/08/18 16:52; Admin Dose 120 MG; Start 11/08/18 at 16:00 CARINA STODDARD MD Nov 09, 2018 06:39
[2018-11-09] MEDS: ALENDRONATE 10 MG TAB PO SCH (07:09)
--- NOTE | 2018-11-09 09:47 | CONS ---
Assessment/Plan Assessment/Plan Assessment/Plan (Daily) Assessment and recommendations; 1. Patient admitted with what appears to be bronchopneumonia with interval improvement. 2. Prior history of left lung cancer, status post chemotherapy and radiation. Extensive fibrotic changes are present. 3. Underlying COPD. 4. Hypertension. 5. History of depression. Continue current supportive care. Patient progressing well on current treatment regimen. Consider discharge on oral antibiotics. Consultation Date/Type/Reason Admit Date/Time Nov 07, 2018 at 06:55 Initial Consult Date 11/07/18 Type of Consult Pulmonary Patient's condition is stable. Denies any shortness of breath at rest. Complains of scant cough without any sputum production wheezing or hemoptysis. Denies any fever or chills. General exam; elderly male, awake alert, on room air. Sitting on the edge of the bed. Currently in no distress. Requesting Provider: EFRA ROJAS NP Date/Time of Note DATE: 11/09/18 TIME: 09:45 24 HR Interval Summary Free Text/Dictation Patient's condition is stable. Doing fairly well on room air. Denies any chest pain, coughing, wheezing, any sputum production. General exam; elderly male, awake alert, currently in no distress. Exam/Review of Systems Exam Vitals Vital Signs Date Temp Pulse Resp B/P (MAP) Pulse Ox O2 O2 Flow FiO2 Time Delivery Rate 11/09/18 81 16 95 Nasal 2.0 08:19 Cannula 11/09/18 98.4 128/60 07:10 (82) 11/08/18 30 21:13 Intake and Output 11/08/18 11/08/18 11/09/18 1515:00 23:00 07:00 IntakeIntake Total 560 ml 850 ml 600 ml BalanceBalance 560 ml 850 ml 600 ml Exam H EENT exam; supple neck, no JVD. No lymphadenopathy. Midline trachea. No thyromegaly. Patient has carious teeth. No neck masses. Chest exam; diminished breath sounds bilaterally. S1-S2 audible, no murmurs. Regular rhythm. Abdomen exam; soft, nontender. No organomegaly. Bowel sounds audible. Extremity exam; no peripheral edema clubbing. CLIENT RELATIONSHIP EXECUTIVE exam; no focal deficit. Results Result Diagram: 11/09/18 0711/09/18 07 Results 24hrs Laboratory Tests Test 11/09/18 07:05 White Blood Count 11.7 #H Red Blood Count 3.22 L Hemoglobin 9.0 L Hematocrit 30.0 L Mean Corpuscular Volume 93.2 Mean Corpuscular Hemoglobin 28.0 L Mean Corpuscular Hemoglobin Concent 30.0 L Red Cell Distribution Width 18.0 H Platelet Count 541 H Mean Platelet Volume 9.5 Immature Granulocytes % 4.300 H Neutrophils % 51.9 Lymphocytes % 19.2 Monocytes % 21.8 H Eosinophils % 2.0 Basophils % 0.8 Nucleated Red Blood Cells % 0.8 H Immature Granulocytes # 0.510 H Neutrophils # 6.1 Lymphocytes # 2.3 Monocytes # 2.6 H Eosinophils # 0.2 Basophils # 0.1 Nucleated Red Blood Cells # 0.1 H Sodium Level 142 Potassium Level 4.0 Chloride Level 108 Carbon Dioxide Level 29 Anion Gap 5 Blood Urea Nitrogen 12 Creatinine 1.15 Est Glomerular Filtrat Rate mL/min Glucose Level 111 Calcium Level 8.3 L Magnesium Level 2.0 Procalcitonin 0.25 H Medications Medication Current Medications IV Flush (NS 3 ml) 3 ml PER PROTOCOL IV ; Start 11/07/18 at 07:30 Ondansetron HCl (Zofran Inj) 4 mg Q6H PRN IV NAUSEA/VOMITING; Start 11/07/18 at 07:30 Acetaminophen (Tylenol Tab) 650 mg Q6H PRN PO .PAIN 1-3 OR TEMP; Start 11/07/18 at 07:30 Acetaminophen/ Hydrocodone Bitart ([place] (5/325)) 1 tab Q6H PRN PO .MOD PAIN 4- 6 Last administered on 11/07/18at 08:50; Admin Dose 1 TAB; Start 11/07/18 at 07:30 Morphine Sulfate (morphine) 2 mg Q4H PRN IV .SEVERE PAIN 7-10; Start 11/07/18 at 07:30 Docusate Sodium (Colace) 100 mg Q12H PRN PO .CONSTIPATION; Start 11/07/18 at 07:30 Magnesium Hydroxide (Milk Of Mag) 30 ml DAILY PRN PO .CONSTIPATION; Start 11/07/18 at 07:30 Pantoprazole (Protonix Tab) 40 mg DAILY@06 PO Last administered on 11/09/18at 06:21; Admin Dose 40 MG; Start 11/08/18 at 06:00 Heparin Sodium (Porcine) (Heparin (5000 Units/1ml)) 5,000 unit Q12 SC Last administered on 11/08/18 20:58; Admin Dose 5,000 UNIT; Start 11/07/18 at 09:00 Lorazepam (Ativan) 0.5 mg Q6H PRN IV ANXIETY; Start 11/07/18 at 07:30 Piperacillin Sod/ Tazobactam Sod 100 ml @ 200 mls/hr Q6 IVPB Last administered on 11/09/18 06:20; Admin Dose 200 MLS/HR; Start 11/07/18 at 12:00 Nitroglycerin (Nitroglycerin (Sl Tab) 0.4 Mg) 1 tab Q5M PRN SL ANGINA; Start 11/07/18 at 07:30 Alendronate Sodium (Fosamax) 10 mg AC BREAKFAST PO Last administered on 11/09/18 07:09; Admin Dose 10 MG; Start 11/08/18 at 07:00 Escitalopram Oxalate (Lexapro) 20 mg DAILY PO Last administered on 11/08/18 08:44; Admin Dose 20 MG; Start 11/07/18 at 09:00 Fluticasone/ Vilanterol (Breo Ellipta 100-25 Mcg Inh) 1 inh DAILY INH Last administered on 11/08/18 09:00; Admin Dose 1 INH; Start 11/07/18 at 09:00 Aspirin (Aspirin) 81 mg DAILY PO Last administered on 11/08/18 08:45; Admin Dose 81 MG; Start 11/07/18 at 10:00 Levalbuterol (Xopenex Neb) 1.25 mg Q4H RESP THERAPY HHN Last administered on 11/09/18 08:18; Admin Dose 1.25 MG; Start 11/07/18 at 13:00 Ipratropium [place] (Atrovent 0.02% (Neb)) 0.5 mg Q4H RESP THERAPY HHN Last administered on 11/09/18 08:18; Admin Dose 0.5 MG; Start 11/07/18 at 13:00 Bupropion HCl (Wellbutrin) 37.5 mg BID PO Last administered on 11/08/18 20:45; Admin Dose 37.5 MG; Start 11/07/18 at 21:00 Alprazolam (Xanax) 0.5 mg Q12H PRN PO ANXIETY Last administered on 11/08/18at 20:45; Admin Dose 0.5 MG; Start 11/07/18 at 10:00 Diltiazem HCl (Cardizem Cd) 120 mg DAILY PO Last administered on 11/08/18at 16:52; Admin Dose 120 MG; Start 11/08/18 at 16:00 Doxycycline Hyclate (Vibramycin) 100 mg BID PO ; Start 11/09/18 at 09:00 SAMANTHA LAWSON Nov 09, 2018 09:47
[2018-11-09] MEDS: FLUTICASONE/VILANTEROL 100-25 INH SCH (09:54)
[2018-11-09] MEDS: BUPROPION 75 MG TAB PO SCH ×2 (09:55→20:32)
[2018-11-09] MEDS: HYDROCODONE/APAP (5/325) TAB PO PRN (09:55)
[2018-11-09] MEDS: ESCITALOPRAM 10 MG TAB PO SCH (09:56)
[2018-11-09] MEDS: DILTIAZEM (CD) 120 MG CAP PO SCH (09:56)
[2018-11-09] MEDS: DOXYCYCLINE 100 MG TAB PO SCH ×2 (09:56→20:32)
[2018-11-09] MEDS: ASPIRIN 81 MG TAB PO SCH (09:56)
[2018-11-09] MEDS: HEPARIN 5,000 UNIT/1 ML VIAL SC SCH (10:03)
--- NOTE | 2018-11-09 14:08 | PN ---
Date/Time of Note Date/Time of Note DATE: 11/09/18 TIME: 14:01 Assessment/Plan VTE Prophylaxis Risk score (from Ns)>0 risk: 4 SCD applied (from Ns): No SCD contraindicated: other Pharmacological prophylaxis: heparin Lines/Catheters IV Catheter Type (from [facility]): Port A Cath Assessment/Plan Hospital Course SUBJECTIVE: No fevers. Off oxygen. No respiratory distress OBJECTIVE: Vital signs-see below PHYSICAL EXAM: Constitutional: elderly obese male,not in acute distress. HEENT: Head atraumatic and normocephalic. Eyes: Extraocular muscles intact. Anicteric sclerae. Pupils equal bilaterally, reactive to light. NECK: Supple without lymph node. CHEST: Diminished bibasilar. No wheezing. HEART: S1, S2. Regular rate and rhythm. ABDOMEN: Protuberant abdomen. Soft/non tender with no rebound tenderness. Bowel sounds were present. EXTREMITIES:+2 Edema BLE. No cyanosis, clubbing NEUROLOGIC: Alert and oriented x3. No focal deficit. No sensory deficit. PSYCHOSOCIAL: No signs of depression. INTEGUMENTARY: No open wounds. ASSESSMENT AND PLAN:78 yo M w/ page for lung carcinoma status post lung surgery 2013 followed by radiation, on chemo regimen,who had chemo last wk,sleep apnea w/home CPAP use here w/SOB/Cough/Fevers x1 day duration found to have sepsis with pneumonia Sepsis, POA -Suspect source: Respiratory -Resolving. -BC / Coag N-likely contaminant -Plan is de-escalation of antibiotics to oral agents by tomorrow. Possible Healthcare acquired pneumonia -Clinically improved -ABX per ID -CONT. Breathing treatments with levalbuterol/Atrovent -Cultures Atrial fibrillation,new onset -Appreciate cardiology recommendations. Plan for starting patient on oral ant icoagulation. 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 -Outpatient oncology follow-up after discharge -Pain control LOI/home CPAP use -Nocturnal CPAP -Patient pulmonary follow-up Depression/anxiety syndrome -cont home medications Chronic pain -PRN opiates Obesity with BMI 37 -Weight reduction advised Prediabetes -Counseled on weight reduction/diet changes DVT prophylaxis: Heparin-stop heparin once started on Eliquis. PUD prophylaxis: PPI Disposition: Overall, patient with clinical improvement. Likely DC in a.m. on possible Augmentin and doxycycline per ID recommendations. Patient is covered through Medicare and be as such there should not be any concern for Eliquis approval. Patient was seen in collaboration with Dr. Marinelli. Result Diagram: 11/09/18 0705 11/09/18 0705 Results 24hrs Laboratory Tests Test 11/09/18 07:05 White Blood Count 11.7 #H Red Blood Count 3.22 L Hemoglobin 9.0 L Hematocrit 30.0 L Mean Corpuscular Volume 93.2 Mean Corpuscular Hemoglobin 28.0 L Mean Corpuscular Hemoglobin Concent 30.0 L Red Cell Distribution Width 18.0 H Platelet Count 541 H Mean Platelet Volume 9.5 Immature Granulocytes % 4.300 H Neutrophils % 51.9 Lymphocytes % 19.2 Monocytes % 21.8 H Eosinophils % 2.0 Basophils % 0.8 Nucleated Red Blood Cells % 0.8 H Immature Granulocytes # 0.510 H Neutrophils # 6.1 Lymphocytes # 2.3 Monocytes # 2.6 H Eosinophils # 0.2 Basophils # 0.1 Nucleated Red Blood Cells # 0.1 H Sodium Level 142 Potassium Level 4.0 Chloride Level 108 Carbon Dioxide Level 29 Anion Gap 5 Blood Urea Nitrogen 12 Creatinine 1.15 Est Glomerular Filtrat Rate mL/min Glucose Level 111 Calcium Level 8.3 L Magnesium Level 2.0 Procalcitonin 0.25 H Exam/Review of Systems Exam Vitals Vital Signs Date Temp Pulse Resp B/P (MAP) Pulse Ox O2 O2 Flow FiO2 Time Delivery Rate 11/09/18 89 12:01 11/09/18 98.5 20 120/59 94 Room Air 11:19 (79) 11/09/18 2.0 08:19 11/08/18 30 21:13 Intake and Output 11/08/18 11/08/18 11/09/18 1515:00 23:00 07:00 IntakeIntake Total 560 ml 850 ml 600 ml BalanceBalance 560 ml 850 ml 600 ml Results Results 24hrs Laboratory Tests Test 11/09/18 07:05 White Blood Count 11.7 #H Red Blood Count 3.22 L Hemoglobin 9.0 L Hematocrit 30.0 L Mean Corpuscular Volume 93.2 Mean Corpuscular Hemoglobin 28.0 L Mean Corpuscular Hemoglobin Concent 30.0 L Red Cell Distribution Width 18.0 H Platelet Count 541 H Mean Platelet Volume 9.5 Immature Granulocytes % 4.300 H Neutrophils % 51.9 Lymphocytes % 19.2 Monocytes % 21.8 H Eosinophils % 2.0 Basophils % 0.8 Nucleated Red Blood Cells % 0.8 H Immature Granulocytes # 0.510 H Neutrophils # 6.1 Lymphocytes # 2.3 Monocytes # 2.6 H Eosinophils # 0.2 Basophils # 0.1 Nucleated Red Blood Cells # 0.1 H Sodium Level 142 Potassium Level 4.0 Chloride Level 108 Carbon Dioxide Level 29 Anion Gap 5 Blood Urea Nitrogen 12 Creatinine 1.15 Est Glomerular Filtrat Rate mL/min Glucose Level 111 Calcium Level 8.3 L Magnesium Level 2.0 Procalcitonin 0.25 H Medications Medication Current Medications IV Flush (NS 3 ml) 3 ml PER PROTOCOL IV ; Start 11/07/18 at 07:30 Ondansetron HCl (Zofran Inj) 4 mg Q6H PRN IV NAUSEA/VOMITING; Start 11/07/18 at 07:30 Acetaminophen (Tylenol Tab) 650 mg Q6H PRN PO .PAIN 1-3 OR TEMP; Start 11/07/18 at 07:30 Acetaminophen/ Hydrocodone Bitart ([place] (5/325)) 1 tab Q6H PRN PO .MOD PAIN 4- 6 Last administered on 11/09/18at 09:55; Admin Dose 1 TAB; Start 11/07/18 at 07:30 Morphine Sulfate (morphine) 2 mg Q4H PRN IV .SEVERE PAIN 7-10; Start 11/07/18 at 07:30 Docusate Sodium (Colace) 100 mg Q12H PRN PO .CONSTIPATION; Start 11/07/18 at 07:30 Magnesium Hydroxide (Milk Of Mag) 30 ml DAILY PRN PO .CONSTIPATION; Start 11/07/18 at 07:30 Pantoprazole (Protonix Tab) 40 mg DAILY@06 PO Last administered on 11/09/18at 06:21; Admin Dose 40 MG; Start 11/08/18 at 06:00 Heparin Sodium (Porcine) (Heparin (5000 Units/1ml)) 5,000 unit Q12 SC Last administered on 11/09/18at 10:03; Admin Dose 5,000 UNIT; Start 11/07/18 at 09:00 Lorazepam (Ativan) 0.5 mg Q6H PRN IV ANXIETY; Start 11/07/18 at 07:30 Piperacillin Sod/ Tazobactam Sod 100 ml @ 200 mls/hr Q6 IVPB Last administered on 11/09/18 12:06; Admin Dose 200 MLS/HR; Start 11/07/18 at 12:00 Nitroglycerin (Nitroglycerin (Sl Tab) 0.4 Mg) 1 tab Q5M PRN SL ANGINA; Start 11/07/18 at 07:30 Alendronate Sodium (Fosamax) 10 mg AC BREAKFAST PO Last administered on 11/09/18 07:09; Admin Dose 10 MG; Start 11/08/18 at 07:00 Escitalopram Oxalate (Lexapro) 20 mg DAILY PO Last administered on 11/09/18 09:56; Admin Dose 20 MG; Start 11/07/18 at 09:00 Fluticasone/ Vilanterol (Breo Ellipta 100-25 Mcg Inh) 1 inh DAILY INH Last administered on 11/09/18 09:54; Admin Dose 1 INH; Start 11/07/18 at 09:00 Aspirin (Aspirin) 81 mg DAILY PO Last administered on 11/09/18 09:56; Admin Dose 81 MG; Start 11/07/18 at 10:00 Levalbuterol (Xopenex Neb) 1.25 mg Q4H RESP THERAPY HHN Last administered on 11/09/18 08:18; Admin Dose 1.25 MG; Start 11/07/18 at 13:00 Ipratropium [place] (Atrovent 0.02% (Neb)) 0.5 mg Q4H RESP THERAPY HHN Last administered on 11/09/18 08:18; Admin Dose 0.5 MG; Start 11/07/18 at 13:00 Bupropion HCl (Wellbutrin) 37.5 mg BID PO Last administered on 11/09/18 09:55; Admin Dose 37.5 MG; Start 11/07/18 at 21:00 Alprazolam (Xanax) 0.5 mg Q12H PRN PO ANXIETY Last administered on 11/08/18 20:45; Admin Dose 0.5 MG; Start 11/07/18 at 10:00 Diltiazem HCl (Cardizem Cd) 120 mg DAILY PO Last administered on 6/6/19at 09:56; Admin Dose 120 MG; Start 11/08/18 at 16:00 Doxycycline Hyclate (Vibramycin) 100 mg BID PO Last administered on 11/09/18at 09:56; Admin Dose 100 MG; Start 11/09/18 at 09:00 EFRA ROJAS NP Nov 09, 2018 14:08
--- NOTE | 2018-11-09 16:50 | CONS ---
Assessment/Plan Assessment/Plan Hospital Course (Demo Recall) Paroxysmal atrial fibrillation: new onset. CHADSVASC is 2 and he would qualify for chronic anticoagulation. Echo with preserved EF. Now back in sinus but intermittent afib. Agreeable to anticoagulation PNA/sepsis Stage 4 lung cancer: head CT without mets COPD LOI -start Eliquis 5mg BID -stop ASA and sq heparin -diltiazem 120mg daily -ok for d/c otherwise from cardiac perspective Consultation Date/Type/Reason Admit Date/Time Nov 07, 2018 at 06:55 Initial Consult Date 11/07/18 Type of Consult Cardiology Requesting Provider: EFRA ROJAS NP Date/Time of Note DATE: 11/09/18 TIME: 16:48 24 HR Interval Summary Free Text/Dictation No events. No complaints. Will be staying one more day for IV antibiotics Exam/Review of Systems Vital Signs Vitals Vital Signs Date Temp Pulse Resp B/P (MAP) Pulse Ox O2 O2 Flow FiO2 Time Delivery Rate 11/09/18 94 16:01 11/09/18 98.3 20 114/66 94 Room Air 15:05 (82) 11/09/18 3.0 14:15 11/08/18 30 21:13 Intake and Output 11/08/18 11/08/18 11/09/18 1515:00 23:00 07:00 IntakeIntake Total 560 ml 850 ml 600 ml BalanceBalance 560 ml 850 ml 600 ml Exam Constitutional: alert, oriented Psych: no complaints, nl mood/affect Head: normocephalic, atraumatic Neck: No jvd Respiratory: diminished breath sounds; No clear to auscultation (ronchi) Cardiovascular: regular rate and rhythm; No edema, No systolic murmur Gastrointestinal: soft, non-tender; No distended Neurological: nl mental status, nl speech Labs Result Diagram: 11/09/18 0711/09/18 0705 Results 24hrs Laboratory Tests Test 11/09/18 07:05 White Blood Count 11.7 #H Red Blood Count 3.22 L Hemoglobin 9.0 L Hematocrit 30.0 L Mean Corpuscular Volume 93.2 Mean Corpuscular Hemoglobin 28.0 L Mean Corpuscular Hemoglobin Concent 30.0 L Red Cell Distribution Width 18.0 H Platelet Count 541 H Mean Platelet Volume 9.5 Immature Granulocytes % 4.300 H Neutrophils % 51.9 Lymphocytes % 19.2 Monocytes % 21.8 H Eosinophils % 2.0 Basophils % 0.8 Nucleated Red Blood Cells % 0.8 H Immature Granulocytes # 0.510 H Neutrophils # 6.1 Lymphocytes # 2.3 Monocytes # 2.6 H Eosinophils # 0.2 Basophils # 0.1 Nucleated Red Blood Cells # 0.1 H Sodium Level 142 Potassium Level 4.0 Chloride Level 108 Carbon Dioxide Level 29 Anion Gap 5 Blood Urea Nitrogen 12 Creatinine 1.15 Est Glomerular Filtrat Rate mL/min Glucose Level 111 Calcium Level 8.3 L Magnesium Level 2.0 Procalcitonin 0.25 H Medications Medications Current Medications IV Flush (NS 3 ml) 3 ml PER PROTOCOL IV ; Start 11/07/18 at 07:30 Ondansetron HCl (Zofran Inj) 4 mg Q6H PRN IV NAUSEA/VOMITING; Start 11/07/18 at 07:30 Acetaminophen (Tylenol Tab) 650 mg Q6H PRN PO .PAIN 1-3 OR TEMP; Start 11/07/18 at 07:30 Acetaminophen/ Hydrocodone Bitart ([place] (5/325)) 1 tab Q6H PRN PO .MOD PAIN 4- 6 Last administered on 11/09/18at 09:55; Admin Dose 1 TAB; Start 11/07/18 at 07:30 Morphine Sulfate (morphine) 2 mg Q4H PRN IV .SEVERE PAIN 7-10; Start 11/07/18 at 07:30 Docusate Sodium (Colace) 100 mg Q12H PRN PO .CONSTIPATION; Start 11/07/18 at 07:30 Magnesium Hydroxide (Milk Of Mag) 30 ml DAILY PRN PO .CONSTIPATION; Start 11/07/18 at 07:30 Pantoprazole (Protonix Tab) 40 mg DAILY@06 PO Last administered on 11/09/18at 06:21; Admin Dose 40 MG; Start 11/08/18 at 06:00 Lorazepam (Ativan) 0.5 mg Q6H PRN IV ANXIETY; Start 11/07/18 at 07:30 Piperacillin Sod/ Tazobactam Sod 100 ml @ 200 mls/hr Q6 IVPB Last administered on 11/09/18at 12:06; Admin Dose 200 MLS/HR; Start 11/07/18 at 12:00 Nitroglycerin (Nitroglycerin (Sl Tab) 0.4 Mg) 1 tab Q5M PRN SL ANGINA; Start 11/07/18 at 07:30 Alendronate Sodium (Fosamax) 10 mg AC BREAKFAST PO Last administered on 11/09/18 07:09; Admin Dose 10 MG; Start 11/08/18 at 07:00 Escitalopram Oxalate (Lexapro) 20 mg DAILY PO Last administered on 11/09/18 09:56; Admin Dose 20 MG; Start 11/07/18 at 09:00 Fluticasone/ Vilanterol (Breo Ellipta 100-25 Mcg Inh) 1 inh DAILY INH Last administered on 11/09/18 09:54; Admin Dose 1 INH; Start 11/07/18 at 09:00 Levalbuterol (Xopenex Neb) 1.25 mg Q4H RESP THERAPY HHN Last administered on 11/09/18 14:15; Admin Dose 1.25 MG; Start 11/07/18 at 13:00 Ipratropium [place] (Atrovent 0.02% (Neb)) 0.5 mg Q4H RESP THERAPY HHN Last administered on 11/09/18 14:15; Admin Dose 0.5 MG; Start 11/07/18 at 13:00 Bupropion HCl (Wellbutrin) 37.5 mg BID PO Last administered on 11/09/18 09:55; Admin Dose 37.5 MG; Start 11/07/18 at 21:00 Alprazolam (Xanax) 0.5 mg Q12H PRN PO ANXIETY Last administered on 11/08/18 20:45; Admin Dose 0.5 MG; Start 11/07/18 at 10:00 Diltiazem HCl (Cardizem Cd) 120 mg DAILY PO Last administered on 11/09/18 09:56; Admin Dose 120 MG; Start 11/08/18 at 16:00 Doxycycline Hyclate (Vibramycin) 100 mg BID PO Last administered on 11/09/18 09:56; Admin Dose 100 MG; Start 11/09/18 at 09:00 Apixaban (Eliquis) 5 mg BID PO ; Start 11/09/18 at 21:00 ADRIANA OWENS Nov 09, 2018 16:50
[2018-11-09] MEDS: ALPRAZOLAM 0.5 MG TAB PO PRN (20:32)
[2018-11-09] MEDS: APIXABAN 5 MG TABLET PO SCH (20:33)
[2018-11-10] VITALS (10 sets, daily range): BP systolic 115–143; BP diastolic 56–71; PULSE 78–101; RESP 18–20
[2018-11-10] MEDS: PIPER-TAZO 3.375 GM IV (PMX) 100 ML IVPB SCH ×3 (00:19→12:00)
[2018-11-10] MEDS: IPRATROPIUM (NEB) 0.5 MG/2.5 ML AMP HHN SCH ×4 (01:20→12:54)
[2018-11-10] MEDS: LEVALBUTEROL (NEB) 1.25 MG/0.5 ML AMP HHN SCH ×4 (01:20→12:54)
[2018-11-10] MEDS: PANTOPRAZOLE (EC) 40 MG TAB PO SCH (06:23)
[2018-11-10] MEDS: ALENDRONATE 10 MG TAB PO SCH (06:23)
[2018-11-10] MEDS: FLUTICASONE/VILANTEROL 100-25 INH SCH (09:00)
[2018-11-10] MEDS: ESCITALOPRAM 10 MG TAB PO SCH (09:01)
[2018-11-10] MEDS: DOXYCYCLINE 100 MG TAB PO SCH (09:01)
[2018-11-10] MEDS: APIXABAN 5 MG TABLET PO SCH (09:01)
[2018-11-10] MEDS: BUPROPION 75 MG TAB PO SCH (09:01)
[2018-11-10] MEDS: DILTIAZEM (CD) 120 MG CAP PO SCH (09:02)
--- NOTE | 2018-11-10 10:30 | CONS ---
Assessment/Plan Assessment/Plan Assessment/Plan (Daily) Assessment and recommendations; 1. Patient admitted with what appears to be bronchopneumonia with significant interval improvement. 2. Underlying severe COPD. 3. Prior history of left lung non-small cell carcinoma status post chemotherapy and radiation treatment with significant fibrotic changes making it difficult to evaluate for any superimposed pneumonia. 4. History of hypertension 5. Depression Continue current supportive care. Consider discharge on oral antibiotics. Consultation Date/Type/Reason Admit Date/Time Nov 07, 2018 at 06:55 Initial Consult Date 11/07/18 Type of Consult Pulmonary Patient's condition is stable. Denies any shortness of breath at rest. Complains of scant cough without any sputum production wheezing or hemoptysis. Denies any fever or chills. General exam; elderly male, awake alert, on room air. Sitting on the edge of the bed. Currently in no distress. Requesting Provider: EFRA ROJAS NP Date/Time of Note DATE: 11/10/18 TIME: 10:29 24 HR Interval Summary Free Text/Dictation Patient's condition is stable. Denies any significant shortness of breath. Complains of very mild cough. General exam; elderly male, currently in no distress. On 3 L nasal cannula. On intermittent BiPAP nocturnally. Exam/Review of Systems Exam Vitals Vital Signs Date Temp Pulse Resp B/P (MAP) Pulse Ox O2 O2 Flow FiO2 Time Delivery Rate 11/10/18 94 24 98 09:18 11/10/18 3.0 09:18 11/10/18 98.3 126/71 07:08 (89) 11/10/18 40 04:29 11/09/18 Room Air 15:05 Intake and Output 11/09/18 11/09/18 11/10/18 1515:00 23:00 07:00 IntakeIntake Total 100 ml 820 ml 520 ml BalanceBalance 100 ml 820 ml 520 ml Exam H EENT exam; supple neck, no JVD. No lymphadenopathy. Midline trachea. No thyromegaly. Patient does have carious teeth. Pupils are small bilaterally. Chest exam; diminished breath sounds bilaterally. S1-S2 audible, no murmurs. Regular rhythm. Abdomen exam; soft, nontender. No organomegaly. Bowel sounds audible. Extremity exam; no peripheral edema clubbing. [employer] exam; no focal deficit. Results Result Diagram: 11/10/1812 11/10/18 0912 Results 24hrs Laboratory Tests Test 11/10/18 09:12 White Blood Count 9.8 Red Blood Count 3.27 L Hemoglobin 9.2 L Hematocrit 30.8 L Mean Corpuscular Volume 94.2 Mean Corpuscular Hemoglobin 28.1 L Mean Corpuscular Hemoglobin Concent 29.9 L Red Cell Distribution Width 17.8 H Platelet Count 496 H Mean Platelet Volume 9.2 Immature Granulocytes % 3.000 H Neutrophils % 62.2 Lymphocytes % 13.7 L Monocytes % 20.0 H Eosinophils % 0.1 Basophils % 1.0 Nucleated Red Blood Cells % 0.4 H Immature Granulocytes # 0.290 H Neutrophils # 6.1 Lymphocytes # 1.3 Monocytes # 2.0 H Eosinophils # 0.0 Basophils # 0.1 Nucleated Red Blood Cells # 0.0 Sodium Level 144 Potassium Level 4.1 Chloride Level 108 Carbon Dioxide Level 30 Anion Gap 6 Blood Urea Nitrogen 10 Creatinine 1.22 Est Glomerular Filtrat Rate mL/min Glucose Level 116 Calcium Level 8.5 Medications Medication Current Medications IV Flush (NS 3 ml) 3 ml PER PROTOCOL IV ; Start 11/07/18 at 07:30 Ondansetron HCl (Zofran Inj) 4 mg Q6H PRN IV NAUSEA/VOMITING; Start 11/07/18 at 07:30 Acetaminophen (Tylenol Tab) 650 mg Q6H PRN PO .PAIN 1-3 OR TEMP; Start 11/07/18 at 07:30 Acetaminophen/ Hydrocodone Bitart ([place] (5/325)) 1 tab Q6H PRN PO .MOD PAIN 4- 6 Last administered on 11/09/18at 09:55; Admin Dose 1 TAB; Start 11/07/18 at 07:30 Morphine Sulfate (morphine) 2 mg Q4H PRN IV .SEVERE PAIN 7-10; Start 11/07/18 at 07:30 Docusate Sodium (Colace) 100 mg Q12H PRN PO .CONSTIPATION; Start 11/07/18 at 07:30 Magnesium Hydroxide (Milk Of Mag) 30 ml DAILY PRN PO .CONSTIPATION; Start 11/07/18 at 07:30 Pantoprazole (Protonix Tab) 40 mg DAILY@06 PO Last administered on 11/10/18at 06:23; Admin Dose 40 MG; Start 11/08/18 at 06:00 Lorazepam (Ativan) 0.5 mg Q6H PRN IV ANXIETY; Start 11/07/18 at 07:30 Piperacillin Sod/ Tazobactam Sod 100 ml @ 200 mls/hr Q6 IVPB Last administered on 11/10/18 06:23; Admin Dose 200 MLS/HR; Start 11/07/18 at 12:00 Nitroglycerin (Nitroglycerin (Sl Tab) 0.4 Mg) 1 tab Q5M PRN SL ANGINA; Start 11/07/18 at 07:30 Alendronate Sodium (Fosamax) 10 mg AC BREAKFAST PO Last administered on 11/10/18 06:23; Admin Dose 10 MG; Start 11/08/18 at 07:00 Escitalopram Oxalate (Lexapro) 20 mg DAILY PO Last administered on 11/10/18 09:01; Admin Dose 20 MG; Start 11/07/18 at 09:00 Fluticasone/ Vilanterol (Breo Ellipta 100-25 Mcg Inh) 1 inh DAILY INH Last administered on 11/09/18 09:54; Admin Dose 1 INH; Start 11/07/18 at 09:00 Levalbuterol (Xopenex Neb) 1.25 mg Q4H RESP THERAPY HHN Last administered on 11/10/18 09:17; Admin Dose 1.25 MG; Start 11/07/18 at 13:00 Ipratropium [place] (Atrovent 0.02% (Neb)) 0.5 mg Q4H RESP THERAPY HHN Last administered on 11/10/18 09:17; Admin Dose 0.5 MG; Start 11/07/18 at 13:00 Bupropion HCl (Wellbutrin) 37.5 mg BID PO Last administered on 11/10/18 09:01; Admin Dose 37.5 MG; Start 11/07/18 at 21:00 Alprazolam (Xanax) 0.5 mg Q12H PRN PO ANXIETY Last administered on 11/09/18 20:32; Admin Dose 0.5 MG; Start 11/07/18 at 10:00 Diltiazem HCl (Cardizem Cd) 120 mg DAILY PO Last administered on 11/10/18 09:02; Admin Dose 120 MG; Start 11/08/18 at 16:00 Doxycycline Hyclate (Vibramycin) 100 mg BID PO Last administered on 11/10/18at 09:01; Admin Dose 100 MG; Start 11/09/18 at 09:00 Apixaban (Eliquis) 5 mg BID PO Last administered on 11/10/18at 09:01; Admin Dose 5 MG; Start 11/09/18 at 21:00 SAMANTHA LAWSON Nov 10, 2018 10:30
--- NOTE | 2018-11-10 11:44 | PDOCDIS ---
Discharge Instructions CONDITION [id number] Patient Condition: [id number] Stable HOME CARE INSTRUCTIONS: [id number] Diet Instructions: [id number] Low Fat /Cholesterol FOLLOW UP/APPOINTMENTS Follow-up Plan Follow-up with primary care physician and oncologist on Tuesday. EFRA ROJAS NP Nov 10, 2018 11:44
[2018-11-10] MEDS ORDERED: APIX5TAB PO (11:46)
[2018-11-10] MEDS ORDERED: DOXY100T2 PO (11:46)
[2018-11-10] MEDS ORDERED: DILT120C77 PO (11:46)
[2018-11-10] MEDS ORDERED: AMOX1TAB10 PO (11:46)
--- NOTE | 2018-11-10 11:56 | CONS ---
Assessment/Plan Assessment/Plan Hospital Course (Demo Recall) Paroxysmal atrial fibrillation: new onset. CHADSVASC is 2 and he would qualify for chronic anticoagulation. Echo with preserved EF. Now back in sinus but intermittent afib. Agreeable to anticoagulation PNA/sepsis Stage 4 lung cancer: head CT without mets COPD LOI -Eliquis 5mg BID -diltiazem 120mg daily -ok for d/c from cardiac perspective Consultation Date/Type/Reason Admit Date/Time Nov 07, 2018 at 06:55 Initial Consult Date 11/07/18 Type of Consult Cardiology Requesting Provider: EFRA ROJAS NP Date/Time of Note DATE: 11/10/18 TIME: 11:55 24 HR Interval Summary Free Text/Dictation No events. No further afib Exam/Review of Systems Vital Signs Vitals Vital Signs Date Temp Pulse Resp B/P (MAP) Pulse Ox O2 O2 Flow FiO2 Time Delivery Rate 11/10/18 98.2 78 18 115/56 94 Room Air 11:21 (75) 11/10/18 3.0 09:18 11/10/18 40 04:29 Intake and Output 11/09/18 11/09/18 11/10/18 1515:00 23:00 07:00 IntakeIntake Total 100 ml 820 ml 520 ml BalanceBalance 100 ml 820 ml 520 ml Exam Constitutional: alert, oriented Psych: no complaints, nl mood/affect Head: normocephalic, atraumatic Neck: No jvd Respiratory: diminished breath sounds; No clear to auscultation Cardiovascular: regular rate and rhythm; No edema Gastrointestinal: soft, non-tender; No distended Neurological: nl mental status, nl speech Labs Result Diagram: 11/10/1812 11/10/18 0912 Results 24hrs Laboratory Tests Test 11/10/18 09:12 White Blood Count 9.8 Red Blood Count 3.27 L Hemoglobin 9.2 L Hematocrit 30.8 L Mean Corpuscular Volume 94.2 Mean Corpuscular Hemoglobin 28.1 L Mean Corpuscular Hemoglobin Concent 29.9 L Red Cell Distribution Width 17.8 H Platelet Count 496 H Mean Platelet Volume 9.2 Immature Granulocytes % 3.000 H Neutrophils % 62.2 Lymphocytes % 13.7 L Monocytes % 20.0 H Eosinophils % 0.1 Basophils % 1.0 Nucleated Red Blood Cells % 0.4 H Immature Granulocytes # 0.290 H Neutrophils # 6.1 Lymphocytes # 1.3 Monocytes # 2.0 H Eosinophils # 0.0 Basophils # 0.1 Nucleated Red Blood Cells # 0.0 Sodium Level 144 Potassium Level 4.1 Chloride Level 108 Carbon Dioxide Level 30 Anion Gap 6 Blood Urea Nitrogen 10 Creatinine 1.22 Est Glomerular Filtrat Rate mL/min Glucose Level 116 Calcium Level 8.5 Medications Medications Current Medications IV Flush (NS 3 ml) 3 ml PER PROTOCOL IV ; Start 11/07/18 at 07:30 Ondansetron HCl (Zofran Inj) 4 mg Q6H PRN IV NAUSEA/VOMITING; Start 11/07/18 at 07:30 Acetaminophen (Tylenol Tab) 650 mg Q6H PRN PO .PAIN 1-3 OR TEMP; Start 11/07/18 at 07:30 Acetaminophen/ Hydrocodone Bitart ([place] (5/325)) 1 tab Q6H PRN PO .MOD PAIN 4- 6 Last administered on 11/09/18at 09:55; Admin Dose 1 TAB; Start 11/07/18 at 07:30 Morphine Sulfate (morphine) 2 mg Q4H PRN IV .SEVERE PAIN 7-10; Start 11/07/18 at 07:30 Docusate Sodium (Colace) 100 mg Q12H PRN PO .CONSTIPATION; Start 11/07/18 at 07:30 Magnesium Hydroxide (Milk Of Mag) 30 ml DAILY PRN PO .CONSTIPATION; Start 11/07/18 at 07:30 Pantoprazole (Protonix Tab) 40 mg DAILY@06 PO Last administered on 11/10/18at 06:23; Admin Dose 40 MG; Start 11/08/18 at 06:00 Lorazepam (Ativan) 0.5 mg Q6H PRN IV ANXIETY; Start 11/07/18 at 07:30 Piperacillin Sod/ Tazobactam Sod 100 ml @ 200 mls/hr Q6 IVPB Last administered on 11/10/18at 06:23; Admin Dose 200 MLS/HR; Start 11/07/18 at 12:00 Nitroglycerin (Nitroglycerin (Sl Tab) 0.4 Mg) 1 tab Q5M PRN SL ANGINA; Start 11/07/18 at 07:30 Alendronate Sodium (Fosamax) 10 mg AC BREAKFAST PO Last administered on 11/10/18 06:23; Admin Dose 10 MG; Start 11/08/18 at 07:00 Escitalopram Oxalate (Lexapro) 20 mg DAILY PO Last administered on 11/10/18 09:01; Admin Dose 20 MG; Start 11/07/18 at 09:00 Fluticasone/ Vilanterol (Breo Ellipta 100-25 Mcg Inh) 1 inh DAILY INH Last administered on 11/09/18 09:54; Admin Dose 1 INH; Start 11/07/18 at 09:00 Levalbuterol (Xopenex Neb) 1.25 mg Q4H RESP THERAPY HHN Last administered on 11/10/18 09:17; Admin Dose 1.25 MG; Start 11/07/18 at 13:00 Ipratropium [place] (Atrovent 0.02% (Neb)) 0.5 mg Q4H RESP THERAPY HHN Last administered on 11/10/18 09:17; Admin Dose 0.5 MG; Start 11/07/18 at 13:00 Bupropion HCl (Wellbutrin) 37.5 mg BID PO Last administered on 11/10/18 09:01; Admin Dose 37.5 MG; Start 11/07/18 at 21:00 Alprazolam (Xanax) 0.5 mg Q12H PRN PO ANXIETY Last administered on 11/09/18 20:32; Admin Dose 0.5 MG; Start 11/07/18 at 10:00 Diltiazem HCl (Cardizem Cd) 120 mg DAILY PO Last administered on 11/10/18 09:02; Admin Dose 120 MG; Start 11/08/18 at 16:00 Doxycycline Hyclate (Vibramycin) 100 mg BID PO Last administered on 11/10/18 09:01; Admin Dose 100 MG; Start 11/09/18 at 09:00 Apixaban (Eliquis) 5 mg BID PO Last administered on 11/10/18 09:01; Admin Dose 5 MG; Start 11/09/18 at 21:00 ADRIANA OWENS Nov 10, 2018 11:56
--- NOTE | 2018-11-10 11:58 | DS ---
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 Mild interstitial prominence with left-sided and right basilar predominance. This may be acute or chronic in nature. Atelectasis may be considered as well as inflammatory or infectious process and prior radiation therapy in the appropriate setting. 2. Correlation with more recent imaging is suggested if available to assess stability. RPTAT:HGST Parish Marshall Physician Date Time Electronically viewed and signed by Parish Marshall Physician on 11/07/2018 07:00 GT/ 11/08/2018: CT brain without contrast IMPRESSION: 1. Chronic changes of atrophy and small vessel disease white matter, with atrophy greater in the bilateral frontal lobes. 2. No evident intracranial metastatic lung cancer deposits. 3. Otherwise, no evident acute process in the head. RPTAT: [facility] Diya Rosas Physician Date Time Electronically viewed and signed by Diya Rosas Physician on 11/08/2018 19:18 RS/ CC: ADRIANA OWENS [id number] 11/08/2018: 2D echocardiogram Conclusions: Technically difficult study. Normal left ventricular systolic function. Normal left ventricular cavity size. Moderate concentric left ventricular hypertrophy. Ejection fraction is visually estimated at 65 %. Tissue Doppler/Mitral Doppler indices are consistent with impaired relaxation (Stage I diastolic dysfunction). Normal right ventricular size. Normal right ventricular systolic function. The left atrium is normal in size. Normal appearance and function of the mitral valve with trace physiologic regurgitation. Aortic sclerosis without significant stenosis. Trace aortic valve regurgitation. Normal appearance of the tricuspid valve. Unable to obtain RVSP due to minimal presence of tricuspid regurgitation. There is trace tricuspid regurgitation. Normal pericardium with no significant pericardial effusion. There is an anterior echo free space consistent with epicardial fat pad. Dilated IVC with respiratory collapse consistent with elevated right atrial pressure. Normal aortic root. No Vegetation, masses, or thrombi seen. Electronically Signed By: Hx of Present Illness This is a 78-year-old Malay male with history of stage IV lung cancer diagnosed in 2013 who underwent left sided lung resection surgery followed by radiation, progression of cancer mets to spine currently receiving on chemotherapy with last session last week, LOI/home CPAP use, depression /anxiety syndrome, pain secondary to cancer, brought into the emergency room with worsening shortness of breath, cough, fevers since yesterday. Patient has been using his inhalers and CPAP machine which was not enough at this time. His next chemotherapy is supposed to be day after tomorrow. Patient denied nausea, vomiting, abdominal pain, loss of consciousness, dizziness, speech difficulties, vision changes, diarrhea, constipation, numbness, tingling or other constituti onal symptoms. In the emergency room, patient was noted with a white count 14,800, hemoglobin 9.8, hematocrit 32.4, platelet 711, lactic acid 2.6 which went up to 3.5, and B12 20. Chest x-ray showed chronic interstitial prominence bilaterally along with atelectasis. Vital signs show temperature 99.6, pulse rate 117 and patient also required BiPAP in the emergency room. Tolerated EKG showed atrial fibrillation with heart rate ranging in 110. And was given Zosyn and vancomycin in the emergency room. Hospital Course 78 yo M w/ page for lung carcinoma status post lung surgery 2013 followed by radiation, on chemo regimen,who had chemo last wk,sleep apnea w/home CPAP use here w/SOB/Cough/Fevers x1 day duration found to have sepsis with pneumonia.. Patient was treated with appropriate antimicrobials. Patient had clinical and radiographic evidence of resolution of pneumonia. Sepsis resolved. He was being followed by concrete sculptor and infectious disease team. Patient hospitalization was also noted for new onset atrial fibrillation for which patient was evaluated by credit risk associate who recommended anticoagulation on Eliquis and rate control with Cardizem. He then remained in Sinus rhythm. Patient with no insurance issues, as such he would be eligible for novel anticoagulants. Patient was continued on home medications for underlying comorbidities. Patient at this time feeling back to normal. Labs and vital signs stable. He is also stable from medicine standpoint and consultants standpoint. Patient was given prescription for newly added medications. Case management to double check on Eliquis status before discharge. Approximately 60-minute was spent on coordinating the discharge on this patient. See my discharge instructions for follow-ups. [facility] Apixaban* (Eliquis*) 5 Mg Tablet, 5 MG PO BID, #60 TAB Prov:EFRA ROJAS NP 11/10/18 Diltiazem Hcl* (Cardizem CD*) 120 Mg Cap.sr.24h, 120 MG PO DAILY, #30 TAB Prov:EFRA ROJAS NP 11/10/18 Amoxicillin/Potassium Clav (Amox-Clav 875-125 mg Tablet) 875-125 mg Tab, 1 TAB PO BID for 5 Days, #10 TAB Last Dose on 11/14/2018. Prov:EFRA ROJAS NP 11/10/18 Doxycycline* (Vibramycin*) 100 Mg Tab, 100 MG PO BID for 5 Days, #10 TAB last dose 11/14/18 Prov:EFRA ROJAS NP 11/10/18 Reported Medications Albuterol Sulfate* (Albuterol Sulfate* HFA) 8.5 Gm Hfa.aer.ad, 2 PUFF IH Q6, EA 05/07/14 Salmeterol Xinaf/Fluticasone* (Advair*) 250-50 Diskus Inhaler, 1 INH INH BID, INH 05/07/14 [Flunazepam] No Conflict Check, 30 MG 05/07/14 Hydroxyzine Hcl (HYDROXYZINE HCL) 10 Mg/5 Ml Syrup, 25 MG PO 05/07/14 Bupropion Hcl* (Bupropion Hcl*) 75 Mg Tablet, 30 MG PO BID, TAB 05/07/14 Alendronate Sodium* (Alendronate Sodium*) 10 Mg Tablet, 10 MG PO DAILY, TAB 05/07/14 Escitalopram Oxalate* (Lexapro*) 20 Mg Tablet, 20 MG PO DAILY, TAB 05/07/14 Follow-up Plan Follow-up with primary care physician and oncologist on Tuesday. Primary Care Provider Not On Staff Doctor Pending Labs Laboratory Tests Test 11/10/18 09:12 White Blood Count 9.8 10^3/ul (4.8-10.8) Red Blood Count 3.27 10^6/ul (4.70-6.10) Hemoglobin 9.2 g/dl (14.0-18.0) Hematocrit 30.8 % (42.0-52.0) Mean Corpuscular Volume 94.2 fl (82.0-101.0) Mean Corpuscular Hemoglobin 28.1 pg (29.0-33.0) Mean Corpuscular Hemoglobin Concent 29.9 g/dl (32.0-37.0) Red Cell Distribution Width 17.8 % (11.5-14.5) Platelet Count 496 10^3/UL (140-415) Mean Platelet Volume 9.2 fl (7.4-10.4) Immature Granulocytes % 3.000 % (0.001-0.429) Neutrophils % 62.2 % (39.0-77.0) Lymphocytes % 13.7 % (15.0-51.0) Monocytes % 20.0 % (0.0-11.0) Eosinophils % 0.1 % (0.0-7.0) Basophils % 1.0 % (0.0-2.0) Nucleated Red Blood Cells % 0.4 /100WBC (0.0-0.0) Immature Granulocytes # 0.290 10^3/ul (0.0-0.031) Neutrophils # 6.1 10^3/ul (1.6-7.5) Lymphocytes # 1.3 10^3/ul (0.8-2.9) Monocytes # 2.0 10^3/ul (0.3-0.9) Eosinophils # 0.0 10^3/ul (0.0-0.5) Basophils # 0.1 10^3/ul (0.0-0.1) Nucleated Red Blood Cells # 0.0 10^3/ul (0.0-0.0) Sodium Level 144 mmol/L (135-144) Potassium Level 4.1 mmol/L (3.5-5.1) Chloride Level 108 mmol/L (97-110) Carbon Dioxide Level 30 mmol/L (21-31) Anion Gap 6 (5-13) Blood Urea Nitrogen 10 mg/dl (7-20) Creatinine 1.22 mg/dl (0.61-1.24) Est Glomerular Filtrat Rate mL/min mL/min (>60) Glucose Level 116 mg/dl (70-220) Calcium Level 8.5 mg/dl (8.4-10.2) EFRA ROJAS NP Nov 10, 2018 11:58
== END 2018-11-10 14:10 | disposition home or self-care (01) | DRG 871 ==
LOC: E/R 05:24 → 6WM 06:55
PROVIDERS: ADMIT Hospitalist; ATTEND Hospitalist
PROC: 5A09357 Assistance with Respiratory Ventilation, Less than 24 Consecutive Hours, Continuous Positive Airway Pressure (ICD-10-PCS; principal; 2018-11-07)
DX: A41.9 Sepsis, unspecified organism (principal); J18.9 Pneumonia, unspecified organism; C34.90 Malignant neoplasm of unspecified part of unspecified bronchus or lung; C79.51 Secondary malignant neoplasm of bone; J44.1 Chronic obstructive pulmonary disease with (acute) exacerbation; G47.33 Obstructive sleep apnea (adult) (pediatric); F32.9 Major depressive disorder, single episode, unspecified; F41.9 Anxiety disorder, unspecified; G89.29 Other chronic pain; E66.9 Obesity, unspecified; Z68.35 Body mass index [BMI] 35.0-35.9, adult; Z99.81 Dependence on supplemental oxygen; Z90.2 Acquired absence of lung [part of]; I48.0 Paroxysmal atrial fibrillation; M81.0 Age-related osteoporosis without current pathological fracture
CPT/HCPCS: 36415; 36600; 70450; 71045; 80048; 80053; 80061; 82550; 82553; 82803; 83036; 83605; 83735; 83880; 84100; 84145; 84439; 84443; 84484; 85025; 85610; 85730; 87070; 87081; 92610; 93005; 93306; 93970; 94640; 94644; 94660; 94664; 96365; 96375; 97161; 97166; J0692; J1644; J2543; J3370; J3475; J7030; J7040; J7050